=== PATIENT | female | born 1950 | race Caucasian/White ===

== ENCOUNTER → 2019-06-30 14:00 | Outpatient (CLI) | payer MEDICARE, MEDICAID, SELFPAY ==
[2019-06-30 14:09] LABS: Microscopic, Urine URINE MICROSCOPIC (MICROSCOPIC)
[2019-06-30 15:16] LABS: Appearance,Urine CLEAR (Clear); Bilirubin,Urine Negative (Negative); Blood, Urine 2+ (Negative); Color,Urine YELLOW (Yellow); Glucose,Urine (UA) Negative (Negative); Ketones,Urine Negative (Negative); Leukocyte Esterase,Urine 3+ (Negative); Nitrate,Urine Negative (Negative); Protein,Urine Negative (Negative); Specific Gravity, Urine >= 1.030 (1.005-1.030); Urobilinogen,Urine 0.2 EU/dl (0.2)
[2019-06-30 17:07] LABS: WBC,Urine 20-50 #/hpf (0-3)
[2019-06-30 17:08] LABS: Bacteria,Urine 1+ /lpf
== END ==
PROVIDERS: Visit Provider Internal Medicine Adolescent Medicine
DX: N39.0 Urinary tract infection, site not specified (principal)
CPT/HCPCS: 81001; 87086; 87088; 87186

== ENCOUNTER 2020-05-16 01:01 | Observation (INO) | payer MEDICARE, MEDICAID, SELFPAY ==
[2020-05-16] VITALS (20 sets, daily range): BP systolic 121–203; BP diastolic 61–106; PULSE 69–95; RESP 15–24; TEMP 36.3–37.1; O2SAT 98–100; BMI 18.8; BMI 19.5
--- NOTE | 2020-05-16 01:22 | XR_ITS ---
PROCEDURE: XR CHEST PORTABLE CLINICAL HISTORY: shortness of breath COMPARISON: No exams were available for comparison FINDINGS: The cardiomediastinal silhouette and pulmonary vascularity are within normal limits. COPD/emphysematous changes. Patchy density right lower lobe laterally suggesting an area infiltrate. Minimal blunting of the right CP angle. Mild biapical pleural thickening Old left 9th rib fracture. IMPRESSION: Emphysema/COPD with increased markings in the right lower lobe which may be due to an area of faint infiltrate or atelectasis with small effusion. PA and lateral chest may provide further evaluation. Dictated by: Amarjit Lawrence MD 05/16/2020 04:37 Amarjit Lawrence MD in [place] 05/16/2020 04:37
[2020-05-16 01:56] LABS: Alanine Aminotransferase 24 U/L (12-78); Albumin Level 4.2 g/dl (3.5-5.0); Albumin/Globulin Ratio 1.4 (1.1-1.8); Alkaline Phosphatase 70 U/L (38-126); Anion Gap 5.7 mEq/L (5-15); Aspartate Amino Transferase 42 U/L (14-36); Bilirubin,Total 0.3 mg/dl (0.2-1.3); Blood Urea Nitrogen 30 mg/dl (7-17); Calcium 9.3 mg/dl (8.4-10.2); Carbon Dioxide 39 mmol/L (22.0-30.0); Chloride 101 mmol/L (98-107); Creatinine Clearance Estimated 31 mL/min (50-200); Estimated Glomerular Filt Rate 71 ml/min (>60); GFR (African American) 85 ML/MIN (>60); Globulin 2.9 g/dL (1.3-3.2); Glucose 122 mg/dl (74-100); Lactic Acid 0.7 mmol/L (0.7-2.1); Potassium 4.7 mmoL/L (3.5-5.1); Sodium 141 mmol/L (136-145); Total Protein,Serum 7.1 g/dl (6.3-8.2)
[2020-05-16 02:01] LABS: C-Reactive Protein 2.3 mg/L (0-4)
--- NOTE | 2020-05-16 02:04 | HMH.EDSOB ---
ED Disposition Clinical Impression: Acute exacerbation of chronic obstructive airways disease, Severe sepsis with acute organ dysfunction Respiratory failure with hypercapnia Qualifiers: Chronicity: acute on chronic Qualified Code(s): J96.22 - Acute and chronic respiratory failure with hypercapnia Disposition: Admitted As Inpatient Condition on Discharge: Good Referrals: Dariana Ospina [Primary Care Provider] - - Critical Care Critical Care Time: No Attestation: On 05/16/20, the high probability of a clinically significant, sudden or life threatening deterioration of the following system(s) required my full and direct attention, intervention and personal management. The time I documented below is in addition to time spent performing reported procedures but includes the following listed in this critical care notation. Medical Decision Making - Medical Records Medical records reviewed: Yes: I reviewed the patient's medical records. - [place] Inquiry Pt receiving controlled substance: No Vital Signs: 05/16/20 01:06 05/16/20 01:49 Temperature 98.7 F Temperature Source Oral Pulse Rate 84 Pulse Rate [Right Brachial] 95 H Respiratory Rate 24 Blood Pressure [Right Arm] 203/106 H Blood Pressure Mean [Right Arm] 138 Blood Pressure Source [Right Arm] Automatic Cuff Blood Pressure Position [Right Arm] Sitting 02 Sat by Pulse Oximetry 98 Oxygen Delivery Method Nasal Cannula Oxygen Flow Rate (LPM) 2 - Lab Data Lab results reviewed: Yes: I reviewed the patient's lab results. Lab Results 05/16/20 01:35: WBC 18.7 H, RBC 4.37, Hgb 12.8, Hct 41.3, MCV 94.6, MCH 29.2, MCHC 30.9 L, RDW 13.8, Plt Count 230, MPV 8.8, Neut % (Auto) 78.3, Lymph % (Auto) 15.5, Hill % (Auto) 4.3, Eos % (Auto) 1.5, Baso % (Auto) 0.4, Neut # (Auto) 14.6 H, Lymph # (Auto) 2.9, Hill # (Auto) 0.8, Eos # (Auto) 0.3, Baso # (Auto) 0.1, Total Counted 100, Neutrophils % (Manual) 78 H, Lymphocytes % (Manual) 14, Monocytes % (Manual) 5, Eosinophils % (Manual) 3, Platelet Estimate Normal, RBC Morphology Normal 05/16/20 01:35: Sodium 141, Potassium 4.7, Chloride 101, Carbon Dioxide 39 H, Anion Gap 5.7, BUN 30 H, Creatinine 0.80, Estimated Creat Clear 31, Estimated GFR 71, Est GFR ( Amer) 85, Glucose 122 H, Calcium 9.3, Total Bilirubin 0.3, AST 42 H, ALT 24, Alkaline Phosphatase 70, Troponin I < 0.01, C-Reactive Protein 2.3, Total Protein 7.1, Albumin 4.2, Globulin 2.9, Albumin/Globulin Ratio 1.4 05/16/20 01:35: Lactate 0.7 05/16/20 01:35: ESR 15 05/16/20 01:35: Procalcitonin 0.040 Result diagrams: 05/16/20 01:35 05/16/20 01:35 Orders (Tests/Meds): ED MEDICATIONS Generic Name Dose Route Start Last Admin Trade Name Freq PRN Reason Stop Dose Admin Albuterol/Ipratropium 3 ml 05/16/20 01:45 05/16/20 01:49 Ipratropium/Albuterol 3 Ml Neb IH 06/15/20 01:44 3 ml Q1H KHADIJAH Administration Azithromycin 500 mg/ Sodium 250 mls @ 250 mls/hr 05/16/20 03:30 Chloride IV 05/30/20 03:29 Q24H KHADIJAH Protocol Ceftriaxone Sodium 1 gm/ 50 mls @ 100 mls/hr 05/16/20 03:30 Sodium Chloride IV 05/30/20 03:29 Q24H KHADIJAH Protocol ORDERS Category Date Time Status CXR --portable [XR chest portable] Stat Exams 05/16/20 01:22 Taken Covid-19 Nasal PCR ([facility]) Routine Lab 05/16/20 01:35 Received Troponin I Q3H Lab 05/16/20 04:30 Ordered Troponin I Q3H Lab 05/16/20 07:30 Ordered Blood Culture Stat Micro 05/16/20 01:35 Received ABG [Arterial Blood Gas] Stat RT 05/16/20 01:21 Ordered EKG Request [ECG Request by /Amol] Stat Y 05/16/20 01:25 Ordered - Radiology Data #1 Image(s): Chest Image Reviewed: Yes I reviewed the patient's radiology image Preliminary Findings: Abnormal (copd) - ECG Data Tracing #1 Normal Sinus Rhythm: Yes Ischemic changes: non-specific ST-T wave changes - Physician Consults Physician Consulted: bredna Reason -: Admission - KRYSTIAN Score for Non-Stemi [age] of Patient: [age]
[2020-05-16 02:11] LABS: Basophils # 0.1 K/mm3 (0-0.2); Basophils % 0.4 % (0.1-2.0); Eosinophils # 0.3 K/mm3 (0.0-0.4); Eosinophils % 1.5 % (0.1-12.0); Hematocrit 41.3 % (37.0-47.0); Hemoglobin 12.8 g/dL (12.2-16.2); Lymphocytes # 2.9 K/mm3 (0.7-4.5); Lymphocytes % 15.5 % (10-50); Mean Corpuscular HGB Conc 30.9 g/dL (31.8-35.4); Mean Corpuscular Hemoglobin 29.2 pg (27.0-31.2); Mean Corpuscular Volume 94.6 fl (81-99); Mean Platelet Volume 8.8 fl (7.4-10.4); Monocytes # 0.8 K/mm3 (0.1-1.0); Monocytes % 4.3 % (1.7-9.3); Neutrophils # 14.6 K/mm3 (1.8-7.8); Neutrophils % 78.3 % (37.0-80.0); Platelet Count 230 K/mm3 (142-424); Red Blood Count 4.37 M/mm3 (4.20-5.40); Red Cell Distribution Width 13.8 % (11.5-17.5); White Blood Count 18.7 K/mm3 (4.8-10.8)
[2020-05-16 02:12] LABS: Troponin I < 0.01 ng/ml (0.00-0.034)
[2020-05-16 02:16] LABS: MANUAL DIFFERENTIAL MANUAL DIFFERENTIAL (MANUAL DIFF)
--- NOTE | 2020-05-16 02:22 | PC.NURSE ---
notified resp MD wanted to try vapotherm on pt.
[2020-05-16 02:39] LABS: Erythrocyte Sedimentation Rate 15 mm/hr (0-30)
--- NOTE | 2020-05-16 02:46 | PC.NURSE ---
pt finally AGREEED TO BIPAP. PLACED ON BIPAP AT THIS TIME
[2020-05-16 02:50] LABS: Eosinophils % 3 % (0-3); Lymphocytes % 14 % (10-50); Monocytes % 5 % (2-9); Neutrophils % 78 % (42-76); Platelet Estimate Normal; RBC Morphology Normal; Total Cells Counted 100
--- NOTE | 2020-05-16 03:31 | ECG_ITS ---
APPROVED REPORT Exam: Resting ECG HR:88 bpm ECG Measurements Heart Rate 88 AXES MN 128 P 75 QRSd 74 QRS 58 QT 370 T 61 QTc 447 Conclusion Normal sinus rhythm Normal ECG Electronically signed by : Nabil Paez, 05/16/2020 15:10:11
--- NOTE | 2020-05-16 03:57 | PC.NURSE ---
dr brenda cruz
[2020-05-16 04:12] LABS: NT Pro Brain Natriuretic Pep. 2050 pg/mL (0-125)
--- NOTE | 2020-05-16 04:22 | PC.NURSE ---
pt arrived to floor via stretcher at [id number]
[2020-05-16 05:32] LABS: Basophils % 0.1 % (0.1-2.0); Eosinophils # 0.1 K/mm3 (0.0-0.4); Eosinophils % 0.4 % (0.1-12.0); Hematocrit 43.9 % (37.0-47.0); Hemoglobin 13.5 g/dL (12.2-16.2); Lymphocytes # 0.7 K/mm3 (0.7-4.5); Lymphocytes % 3.7 % (10-50); Mean Corpuscular HGB Conc 30.8 g/dL (31.8-35.4); Mean Corpuscular Hemoglobin 29.2 pg (27.0-31.2); Mean Corpuscular Volume 94.8 fl (81-99); Mean Platelet Volume 8.8 fl (7.4-10.4); Monocytes # 0.3 K/mm3 (0.1-1.0); Monocytes % 1.5 % (1.7-9.3); Neutrophils # 18.4 K/mm3 (1.8-7.8); Neutrophils % 94.3 % (37.0-80.0); Platelet Count 170 K/mm3 (142-424); Red Blood Count 4.64 M/mm3 (4.20-5.40); Red Cell Distribution Width 13.9 % (11.5-17.5); White Blood Count 19.5 K/mm3 (4.8-10.8)
[2020-05-16 05:45] LABS: Chloride 103 mmol/L (98-107); Potassium 5.7 mmoL/L (3.5-5.1); Sodium 141 mmol/L (136-145)
[2020-05-16 05:48] LABS: Anion Gap 8.7 mEq/L (5-15); Blood Urea Nitrogen 29 mg/dl (7-17); Calcium 9.2 mg/dl (8.4-10.2); Carbon Dioxide 35 mmol/L (22.0-30.0); Creatinine Clearance Estimated 31 mL/min (50-200); Estimated Glomerular Filt Rate 71 ml/min (>60); GFR (African American) 85 ML/MIN (>60); Glucose 129 mg/dl (74-100); Magnesium 1.9 mg/dl (1.6-2.3)
[2020-05-16 06:01] LABS: Troponin I 0.01 ng/ml (0.00-0.034)
[2020-05-16 07:02] LABS: ABG PCO2 80.4 mmhg (35.0-45.0); ABG PH 7.25 mmol/L (7.35-7.45)
[2020-05-16 07:03] LABS: ABG Base Excess 7.3 mmol/L (-2.4-2.3); ABG HCO3 34.5 mmhg (22.0-26.0); ABG Oxygen Saturation 94 % (90-100); ABG PO2 72.3 mmhg (80-100)
[2020-05-16 07:04] LABS: Allen's Test ACCEPTABLE; Oxygen 2LPM %; Source R RADIAL
--- NOTE | 2020-05-16 07:29 | HMH.PHAVTE ---
[facility] Pharmacy VTE Monitoring - Patient Demographics Admission date: 05/16/20 Report Date: 05/16/20 Time: 07:30 Allergies/Adverse Reactions: Patient Allergies levofloxacin [From Levaquin] Allergy (Mild, Verified 05/16/20 06:19) rash and itching Height: 1.42 m Weight: 39.548 kg Patient Problems: Current Active Problems Acute exacerbation of chronic obstructive airways disease (Acute) Severe sepsis with acute organ dysfunction (Acute) Respiratory failure with hypercapnia (Acute) - VTE Risk Labs: VTE Related Lab Results Hgb 13.5 g/dL (12.2-16.2) 05/16/20 05:15 Hct 43.9 % (37.0-47.0) 05/16/20 05:15 Plt Count 170 K/mm3 (142-424) D 05/16/20 05:15 BUN 29 mg/dl (7-17) H 05/16/20 05:15 Creatinine 0.80 mg/dl (0.52-1.04) 05/16/20 05:15 Estimated Creat Clear 31 mL/min (50-200) 05/16/20 05:15 VTE Score: 8 VTE Risk Level: Moderate Risk - Prophylaxis VTE Prophylaxis Ordered?: Yes Types of VTE Prophylaxis: TEDS Knee High Location of Applied Device: Bilateral Lower Extremeties
--- NOTE | 2020-05-16 07:34 | HMH.HP ---
*Admission Date: 05/16/20 *Chief complaint: Shortness of breath *History of present illness: 70-year-old female with history of COPD became increasingly short of breath at home yesterday. She presented to our emergency department. In the ER she was found to have acute respiratory failure with mild hypoxia and more significant hypercapnia that required application of BiPAP. Patient normally wears oxygen at home 2 to 2-1/2 L/min. Patient was admitted on BiPAP for her acute respiratory failure. She denies fevers, shortness of breath, cough, chest pain. She does admit that her memory of the events of yesterday is a little fuzzy. She had recently been released from [facility] after a rehabilitation stay there [facility] History I have reviewed the patient's past medical history: Yes Medical History: Reports:: Chronic Obstructive Pulmonary Disease (COPD), Hyperlipidemia, Hypertension, Peripheral Vascular Disease Denies:: Cancer, Diabetes Mellitus Type 1, Diabetes Mellitus Type 2, Internal Pacemaker, MRSA *Have you ever received a pneumonia vaccine?: No *Have you received a flu vaccine this season?: No Other Medical History: Reports: Hypothyroidism Other Surgeries: No: Pacemaker Amputation: No - *Social History Smoking Status: Former smoker Alcohol Intake: never *Occupational Status:: unemployed Household Members: family *Travel in the last 8 weeks: None Family Hx:: Unable to obtain Review of Systems - Constitutional Denies body ache(s), Denies chills - Eyes Denies blurry vision - ENT Denies difficulty swallowing - *Cardiovascular Denies chest pain, Denies chest pain at rest, Denies chest pain with activity - *Respiratory Reports shortness of breath, Denies change in phlegm color, Denies chest congestion, Denies cough - *Gastrointestinal Denies abdominal pain, Denies loose stools - *Genitourinary Denies painful urination - *Musculoskeletal Denies joint pain - *Neurologic Denies localized weakness, Denies headache(s), Denies seizure-like activity Meds Home Medications Medication Instructions Recorded Confirmed Type Aspirin [Aspirin 81mg EC Tab] 81 mg PO DAILY 05/16/20 05/16/20 History Atorvastatin Calcium [Lipitor 40mg 40 mg PO HS 05/16/20 05/16/20 History Tablet*] Clopidogrel Bisulfate [Plavix 75mg 75 mg PO DAILY 05/16/20 05/16/20 History Tab] Fluticasone Propionate [Flonase 18.2 ml NS DAILY 05/16/20 05/16/20 History Allergy Relief] Isosorbide Dinitrate 30 mg PO DAILY 05/16/20 05/16/20 History LORazepam [Lorazepam 0.5mg Tablet] 0.5 mg PO BID 05/16/20 05/16/20 History Levothyroxine Sodium 50 mcg PO DAILY 05/16/20 05/16/20 History [Levothyroxine 50mcg (0.05mg) Tab] Loratadine [Claritin] 10 mg PO DAILY 05/16/20 05/16/20 History Metoprolol Tartrate [Lopressor 50 mg PO BID 05/16/20 05/16/20 History 50mg tablet] lisinopriL [Lisinopril] 10 mg PO DAILY 05/16/20 05/16/20 History predniSONE [Prednisone 2.5mg 0.5 tab .ROUTE DAILY 05/16/20 05/16/20 History Tab] Allergies Allergy/AdvReac Type Severity Reaction Status Date / Time levofloxacin [From [facility]] Allergy Mild rash and Verified 05/16/20 06:19 itching Exam Vital signs and Labs for Last 24 Hours: Temp Pulse Resp BP Pulse Ox 98.3 F 88 22 165/91 H 98 05/16/20 04:20 05/16/20 06:22 05/16/20 04:20 05/16/20 04:20 05/16/20 04:48 Laboratory Results - last 24 hr 05/16/20 01:22: Specimen Source R radial, O2 % 2lpm, ABG pH 7.25 L, ABG pCO2 80.4 H, ABG pO2 72.3 L, ABG HCO3 34.5 H, ABG Total CO2 37.0 H, ABG O2 Saturation 94, ABG Base Excess 7.3 H, Amarjit Test Acceptable 05/16/20 01:35: WBC 18.7 H, RBC 4.37, Hgb 12.8, Hct 41.3, MCV 94.6, MCH 29.2, MCHC 30.9 L, RDW 13.8, Plt Count 230, MPV 8.8, Neut % (Auto) 78.3, Lymph % (Auto) 15.5, Foster % (Auto) 4.3, Eos % (Auto) 1.5, Baso % (Auto) 0.4, Neut # (Auto) 14.6 H, Lymph # (Auto) 2.9, Foster # (Auto) 0.8, Eos # (Auto) 0.3, Baso # (Auto) 0.
--- NOTE | 2020-05-16 07:37 | SW/DCPLANNER ---
Addendum entered by Mirta Contreras 05/19/20 06:33: RECEIVED A CALL FROM [facility] LAST EVENING THAT [facility] APPROVED THIS PATIENT TO GO THERE TODAY (FRIDAY).... I HAVE NOTIFIED DR KOHLI AND HE STATED HE WILL DISCHARGE HER.. DAUGHTER IS COMING TO TAKE HER THERE... Original Note: PATIENT ADMITTED TO [facility] LAST EVENING AFTER JUST BEING DISCHARGED FROM [facility] TO GO HOME...HER [employer]/[facility] DENIED HER TO STAY ANY LONGER AND PATIENT WAS GOING TO HAVE TO CONVERT TO MEDICAID OR GO HOME AND PATIENT ELECTED TO GO HOME.. I SPOKE WITH SHERI AND SHE SAID THEY MAY TAKE HER BACK IF SHE CHOOSES TO COME.. WILL FOLLOW UP WITH PATIENT AND DAUGHTER TODAY AND SEND UPDATED INFORMATION IF SHE ELECTS TO GO BACK...
[2020-05-16 08:45] LABS: Troponin I 0.02 ng/ml (0.00-0.034)
--- NOTE | 2020-05-16 11:04 | HMH.PHAINT ---
MEDICATION RECONCILIATION COMPLETED USING HOME PHARMACY AND PATIENT INTERVIEW
--- NOTE | 2020-05-16 12:30 | PC.NURSE ---
Addendum entered by Lori Velarde RN 05/16/20 14:42: Pt on RA Original Note: Pt has been weaned down to 1 L NC and has sustained 100% for approx 5 min at this time, will continue to monitor and see how pt tolerates RA.
--- NOTE | 2020-05-16 13:55 | PC.NURSE ---
Speci cup placed on bedside table. Pt educated on need for sputum sample. Pt verbalized understanding. Will continue to monitor.
--- NOTE | 2020-05-16 14:29 | PC.NURSE ---
Sputum induced. Pt unable to make productive cough. Encouraged to cough. Specimen cup left at bedside.
--- NOTE | 2020-05-16 14:46 | SW/DCPLANNER ---
Addendum entered by Mirta Contreras 05/17/20 09:19: SENT INFORMATION TO [facility] TO SEND IN FOR AUTHORIZATION FOR PATIENT TO RETURN BACK THERE FOR SKILLED STAY.. WAITING TO HEAR BACK TO WHETHER IT WAS APPROVED OR NOT.... Original Note: MS LAMAS PRESENTED INTO THE ED VIA EMS AFTER BEING DISCHARGED TO HOME FROM [facility] YESTERDAY (FRIDAY).... HER INSURANCE HAD DENIED HER TO STAY ANY LONGER. SHE PRESENTED HOME AND CALLED HER DAUGHTER LAST EVENING AND SAID SHE COULDN'T BREATH AND DAUGHTER CALLED AN AMBULANCE...I SPOKE WITH HER ABOUT GOING BACK TO [facility] AND SHE SAID I COULD SEND HER INFORMATION AND SEE IF THEY WILL APPROVE HER STAY...I SPOKE WITH HER DAUGHTER AND SHE DIDN'T WANT HER LEAVE THE [facility] BUT MS LAMAS WAS ADAMANT SHE WANTED TO GO HOME .. IF SHE GOES BACK AND HER INSURANCE DOESN'T APPROVE HER SHE WILL HAVE TO GO MEDICAID PENDING, PATIENT STATED SHE DID NOT WANT TO GO TO STAY FOREVER... WILL NEED A PT/OT EVAL IN ORDER TO SEND IT IN AND I DID SPEAK WITH SHERI AND SHE SAID THEY WOULD TAKE HER BACK.. NOT SURE WHEN SHE WILL BE READY FOR A DISPOSITION BUT IT SHOULDN'T BE LONG...
--- NOTE | 2020-05-16 15:58 | PC.NURSE ---
Pt has slept most of this shift. She has been between 3 L NC and RA this shift. Pt tolerated RA for approximately 45 min and then desatted to 83-86%. 1L NC reapplied to pt and pt is currently at 94%. Pt has turned herself in bed this shift w/ no issues. Besides o2 sats, VSS. Pt has been incontinent of urine this shift. No other acute changes or complaints at this time.
[2020-05-17] VITALS (10 sets, daily range): BP systolic 129–160; BP diastolic 77–89; PULSE 78–90; RESP 16–20; TEMP 36.6–36.9; O2SAT 94–100; BMI 20.5
--- NOTE | 2020-05-17 07:08 | PC.NURSE ---
20 L AC infiltrated this AM, stated it was ok to leave without IV access
--- NOTE | 2020-05-17 07:29 | HMH.ACPN2 ---
Internal Medicine - PN: Subj *Date: 05/17/20 *Time: 07:29 Interval history: Patient IV infiltrated overnight which is led to swelling of the lateral left upper arm. Patient is worried she may have a blood clot. Both nursing staff and myself this morning have explained to her that she does not have a blood clot this is simply the IV fluid she was being given getting into her tissues. Otherwise she reports improvement in her shortness of breath. Patient does believe allergies may have triggered her acute respiratory failure. Exam Vital signs and Labs for Last 24 Hours: Temp Pulse Resp BP Pulse Ox 98.1 F 90 16 129/77 95 05/17/20 04:00 05/17/20 06:30 05/17/20 04:00 05/17/20 04:00 05/17/20 06:30 Laboratory Results - last 24 hr 05/16/20 08:15: Troponin I 0.02 I & O for Last 24 hours: Intake & Output 05/14/20 05/15/20 05/16/20 05/17/20 11:59 11:59 11:59 11:59 Intake Total 60 / 60 480 / 480 Output Total 0 / 0 0 / 0 Balance 60 / 60 480 / 480 Weight 87 lb 3 oz 91 lb 7 oz Microbiology Reports for the Last 24 Hours: Microbiology 05/16/20 01:35 Nasopharyngeal Coronavirus COVID-19 PCR - Final Narrative: Patient looks comfortable sitting in bed. Nasal cannula is in place. Lung exam reveals distant breath sounds with right basilar rales. She does have some faint expiratory wheezes. Heart has a regular rate and rhythm this morning. Abdomen is soft. Lower extremities have no edema Assessment and Plan (1) Acute exacerbation of chronic obstructive airways disease Status: Acute Category: Medical Code(s): J44.1 - Chronic obstructive pulmonary disease with (acute) exacerbation (2) Respiratory failure with hypercapnia Status: Acute Qualifiers: Chronicity: acute on chronic Qualified Code(s): J96.22 - Acute and chronic respiratory failure with hypercapnia Category: Medical Code(s): J96.92 - Respiratory failure, unspecified with hypercapnia (3) Essential hypertension Status: Acute Category: Medical Code(s): I10 - Essential (primary) hypertension (4) Former smoker Status: Acute Category: Social Hx Code(s): Z87.891 - Personal history of nicotine dependence (5) Hyperlipidemia Status: Acute Category: Medical Code(s): E78.5 - Hyperlipidemia, unspecified (6) Peripheral arterial disease Status: Acute Category: Medical Code(s): I73.9 - Peripheral vascular disease, unspecified (7) Hypothyroidism Status: Acute Category: Medical Code(s): E03.9 - Hypothyroidism, unspecified (8) Allergic rhinitis Status: Acute Category: Medical Code(s): J30.9 - Allergic rhinitis, unspecified - Assessment and plan all Dx Assessment and Plan for all problems:: 1. Patient will be transition to oral medications due to infiltration of IV and difficulty reestablishing IV access. Oral medicines will now be prednisone 20 mg daily, Omnicef 300 mg twice daily, azithromycin 250 mg daily. 2. Patient is willing to return to [facility]. Medically patient is stable and appropriate for discharge. We are awaiting PT OT evaluation today and insurance precertification.
--- NOTE | 2020-05-17 08:00 | PC.NURSE ---
pt has done well overnight with the exception of the IV infiltration, no complaints of any SOA or chest pain this shift, was on 1L NC until around 0630, turned down to 0.5 L, O2 sats on 1 L 97-100%
--- NOTE | 2020-05-17 09:00 | HMH.PTEV ---
Physical Therapy Evaluation Rehab PT IP Evaluation Start: 05/16/20 15:03 Freq: .once Status: Active Protocol: Document 05/17/20 08:30 PHORNE (Rec: 05/17/20 09:00 PHORNE [id number]) Subjective/History History History 70 yowf adm to [facility] with COPD exac. She reports she lives with daughter currently, no steps to enter the home and uses a walker for ambulation when I need to. She uses oxygen via NC at all times. Subjective Subjective Pt reports she feel like she can not take care of herself well enough to go home. Rehab PT IP Eval Objective Appearance Patient Behavior Appropriate Patient Orientation Person,Place,Time Difficulty following instructions none Speech Pattern Clear Ambulation Patient Able to Ambulate Yes Ambulation Observation IP General Gait Pattern Observation Shuffling Step Ambulation Distance (feet) 15 Ambulation Assistive Device Rolling Walker Ambulation Ability Contact Guard/Hand Hold Balance Ability to Arise Able, uses arms to help Sitting Balance Steady, safe Standing Balance Steady, wide stance Dynamic Sitting Balance Ability Good Dynamic Standing Balance Ability Fair Transfers Bed Transfer Ability Contact Guard/Hand Hold Chair Transfer Ability Contact Guard/Hand Hold Sit to Stand Bed Transfer Ability Contact Guard/Hand Hold Sit to Stand Chair Transfer Ability Contact Guard/Hand Hold ROM All Extremities PT ROM Status WFL MMT All Extremities PT MMT WFL Rehab PT IP prob,goals,plan Problems Date of Evaluation: 05/17/20 PT IP Problems Bed Mobility,Transfers,Gait, Self care Rehab Potential Rehab Potential Good Plan PT Intervention Plan Bed Mobility,Transfers,Gait, Self care,Therapeutic Exercise PT Plan Frequency BID Duration LOS Discharge Goals Bed Transfer Ability Supervision/Stand by Sit to Stand Chair Transfer Ability Supervision/Stand by Ambulation Assistive Device Rolling Walker Ambulation Distance (feet) 40 Discharge Plan PT Discharge Plan Pt is most appropriate for rehab placement at this time due to increased need for safety and assistance with ADL 's. G -code Required No Eval Complexity
--- NOTE | 2020-05-17 09:36 | HMH.OTEV ---
OT Inpatient Evaluation Rehab OT IP Evaluation Start: 05/17/20 07:28 Freq: ONCE Status: Complete Protocol: Document 05/17/20 09:31 EFRAIN (Rec: 05/17/20 09:36 PRACHIALLA [id number]) Rehab OT IP Assessment Subjective History 70-year-old female with history of COPD became increasingly short of breath at home yesterday. She presented to our emergency department. In the ER she was found to have acute respiratory failure with mild hypoxia and more significant hypercapnia that required application of BiPAP. Patient normally wears oxygen at home 2 to 2-1/2 L/min. Patient was admitted on BiPAP for her acute respiratory failure. She denies fevers, shortness of breath, cough, chest pain. She does admit that her memory of the events of yesterday is a little fuzzy. She had recently been released from [facility] after a rehabilitation stay there. PMH: Chronic Obstructive Pulmonary Disease (COPD), Hyperlipidemia, Hypertension, Peripheral Vascular Disease Subjective I can try to walk around. Patient verbalize to OT and PT that she does not feel comfortable to return home at this time 2* dtr is not home all the time and worried about SP02 when home alone. Patient verbalize wanting to be d/c to rehab to regain strengthen and independence prior to returning home. Patient lives in a 1 story home with dtr who is there after work hours. Dtr assist with ADLs such as bathing and drsg as well as tub transfers. Instructed Patient on safety awareness to complete
--- NOTE | 2020-05-17 18:33 | PC.NURSE ---
Pt has been pleasant this shift. o2 sats have been been >90% this shift. Pt has been between 0.5-1 L this shift. When pt is taken off o2, pt does well for 10-15 minutes, then will desat in the low to mid 80's and sustain. Pt did well w/ PT this shift, pt was UTC for approx 2 hours. Pt required x1 assist w/ a standard walker. Pt remains incontinent of urine. No other acute changes or complaints at this time.
[2020-05-18] VITALS (9 sets, daily range): BP systolic 150–172; BP diastolic 80–100; PULSE 67–100; RESP 18–22; TEMP 36.5–36.9; O2SAT 96–98; BMI 20.5
--- NOTE | 2020-05-18 04:03 | PC.NURSE ---
pt refused to wear bipap at bedtime. Stated she would wear it during the day.
--- NOTE | 2020-05-18 06:45 | PC.NURSE ---
shift summary patient has not voiced any complaints this shift. has remained on 1 l nc with o2 sats high 90s while sleeping. breath sounds diminished throughout, non productive cough present at the beginning of the shift. cupola liner has shown sr. incontinent of bladder.
--- NOTE | 2020-05-18 07:36 | P.PN_ITS ---
Internal Medicine - PN: Subj *Date: 05/18/20 *Time: 07:36 Interval history: Patient reports wheezing this morning but overall feels like she has improved since admission. PT eval yesterday was performed and SNF for rehab was recommended due to patient's physical debility's. Exam Vital signs and Labs for Last 24 Hours: Temp Pulse Resp BP Pulse Ox 98.0 F 83 18 150/90 H 98 05/18/20 04:00 05/18/20 06:43 05/18/20 04:00 05/18/20 04:00 05/18/20 06:43 I & O for Last 24 hours: Intake & Output 05/15/20 05/16/20 05/17/20 05/18/20 11:59 11:59 11:59 11:59 Intake Total 60 / 60 480 / 480 480 / 480 Output Total 0 / 0 0 / 0 Balance 60 / 60 480 / 480 480 / 480 Weight 87 lb 3 oz 91 lb 7 oz 91 lb 3 oz Microbiology Reports for the Last 24 Hours: Microbiology 05/16/20 01:35 Blood Blood Culture - Preliminary NO GROWTH AFTER 48 HOURS 05/16/20 01:35 Blood Blood Culture - Preliminary NO GROWTH AFTER 48 HOURS Narrative: Patient is in no distress. She is sitting up on the side of the bed eating breakfast. Lungs have some faint expiratory wheezes this morning. Rales that have been in the right base have cleared. Heart has a regular rate and rhythm Assessment and Plan (1) Acute exacerbation of chronic obstructive airways disease Status: Acute Category: Medical Code(s): J44.1 - Chronic obstructive pulmon sulema disease with (acute) exacerbation (2) Respiratory failure with hypercapnia Status: Acute Qualifiers: Chronicity: acute on chronic Qualified Code(s): J96.22 - Acute and chronic respiratory failure with hypercapnia Category: Medical Code(s): J96.92 - Respiratory failure, unspecified with hypercapnia (3) Essential hypertension Status: Acute Category: Medical Code(s): I10 - Essential (primary) hypertension (4) Former smoker Status: Acute Category: Social Hx Code(s): Z87.891 - Personal history of nicotine dependence (5) Hyperlipidemia Status: Acute Category: Medical Code(s): E78.5 - Hyperlipidemia, unspecified (6) Peripheral arterial disease Status: Acute Category: Medical Code(s): I73.9 - Peripheral vascular disease, unspecified (7) Hypothyroidism Status: Acute Category: Medical Code(s): E03.9 - Hypothyroidism, unspecified (8) Allergic rhinitis Status: Acute Category: Medical Code(s): J30.9 - Allergic rhinitis, unspecified - Assessment and plan all Dx Assessment and Plan for all problems:: 1. Continue antibiotics, steroids, aerosols. We are awaiting word from patient's insurance regarding transfer to residential facility.
--- NOTE | 2020-05-18 07:38 | HMH.DCSUM ---
General - General Admission date:: 05/16/20 Discharge date: 05/19/20 HPI HPI: 70-year-old female with history of COPD became increasingly short of breath at home yesterday. She presented to our emergency department. In the ER she was found to have acute respiratory failure with mild hypoxia and more significant hypercapnia that required application of BiPAP. Patient normally wears oxygen at home 2 to 2-1/2 L/min. Patient was admitted on BiPAP for her acute respiratory failure. She denies fevers, shortness of breath, cough, chest pain. She does admit that her memory of the events of yesterday is a little fuzzy. She had recently been released from [facility] after a rehabilitation stay there Hospital Course Hospital Course: Patient was admitted and placed on Solu-Medrol and aerosols for her COPD exacerbation, acute on chronic respiratory failure. She was also placed on BiPAP and admitted to the stepdown unit. By the following morning patient's acute respiratory failure had been corrected and she was transitioned to nasal cannula which kept the patient's O2 sats in the mid 90s the remainder of hospitalization. She was continued on steroids, for Solu-Medrol and transition to prednisone when IV access was lost. She was continued on duo nebs every 4-6 hours. Patient was continued on Rocephin and azithromycin due to perceived right lower lobe infiltrate on x-ray consistently found on exam as well. Patient remained afebrile during hospitalization. Patient was quite weak from her illness and it was felt the patient would benefit from return to the [facility] facility she had just left. Patient had PT and OT eval's. Objective Vital signs: Temp Pulse Resp BP Pulse Ox 98.0 F 83 18 150/90 H 98 05/18/20 04:00 05/18/20 06:43 05/18/20 04:00 05/18/20 04:00 05/18/20 06:43 no acute distress - *Routine HEENT Exam Head: Present: normocephalic Eye: Present: EOMI, PERRL ENT: Present: mucous membranes moist - *Routine Respiratory Exam Present: wheezes - *Routine Cardiovascular Exam Present: RRR - *Routine Abdominal Exam Present: soft, normoactive bowel sounds. Absent: tenderness - *Routine Extremities Exam Absent: cyanosis, clubbing, edema Results Labs on day of discharge: Preliminary micro results at discharge 05/16/20 01:35 Blood Culture - Preliminary Blood NO GROWTH AFTER 48 HOURS 05/16/20 01:35 Blood Culture - Preliminary Blood NO GROWTH AFTER 48 HOURS DS: Diagnosis - Discharge Diagnosis (1) Acute exacerbation of chronic obstructive airways disease Status: Acute (2) Respiratory failure with hypercapnia Status: Acute (3) Essential hypertension Status: Acute (4) Former smoker Status: Acute (5) Hyperlipidemia Status: Acute (6) Peripheral arterial disease Status: Acute (7) Hypothyroidism Status: Acute (8) Allergic rhinitis Status: Acute Discharge Plan - Patient Discharge Instructions ACTIVITY: Continue current activity DIET: continue same diet Patient Instructions: Peripheral Artery Disease, DI for Chronic Obstructive Pulmonary Disease, DI for Respiratory Failure, DI for Hypoxia - Follow up Plan Disposition: [facility] Home Medications: Home Medications Medication Instructions Recorded Confirmed Type Albuterol Sulfate [Albuterol 1 neb IH TID 05/16/20 05/16/20 History 0.083% 2.5mg/3mL neb] Aspirin [Aspirin 81mg EC Tab] 81 mg PO DAILY 05/16/20 05/16/20 History Atorvastatin Calcium [Lipitor 40mg 40 mg PO HS 05/16/20 05/16/20 History Tablet*] Azithromycin [Zithromax 250mg tab] 250 mg PO MOWEFR 05/16/20 05/16/20 History Clopidogrel Bisulfate [Plavix 75mg 75 mg PO DAILY 05/16/20 05/16/20 History Tab] Fluticasone Propionate [Flonase 2 sprays NOSTRIL-B DAILY 05/16/20 05/16/20 History Allergy Relief] Isosorbide Dinitrate 30 mg PO DAILY 05/16/20 05/16/20 History Lev
--- NOTE | 2020-05-18 17:35 | PC.NURSE ---
Pt has been pleasant and cooperative this shift. A&O X4. No complaints of pain or SOA. Pt is receiving O2 via NC @ 1 LPM with sats. >90%. Lung sounds reveal expiratory wheezing. Skin is C/D/I. No edema noted. Telemetry reveals NSR. Pt ambulates with assistance X1. Pt sat up on the side of the bed for a few hours today. Pt is incontinent and a brief is in place. No BM this shift. Pt has been instructed to provide a sputum specimen and a cup has been placed at bedside. B/P this AM noted to be elevated. After administration of AM medications, B/P improved and has since remained stable. Call light within reach. Will continue to monitor.
--- NOTE | 2020-05-19 02:52 | PC.NURSE ---
PT REFUSED TO WEAR BIPAP
[2020-05-19 04:00] VITALS: BP 154/84; PULSE 72; RESP 22; TEMP 36.9; O2SAT 99
[2020-05-19 05:33] VITALS: BMI 20.9
--- NOTE | 2020-05-19 05:47 | PC.NURSE ---
PT HAS SLEPT MOST OF THE NIGHT,LUNGS WITH SOME INSPIROTORY WHEEZING NOTED. ,SAT LEVEL 99% ON 2 LITERS OF OXYGEN.PT DENIES ANY SOA..BOWEL SOUNDS X 4 QUADS,PT HAS VOIDED SEVERAL TIMES IN HER ATTENDS.WILL CONTINUE TO MONITOR
[2020-05-19 08:00] VITALS: BP 144/80; PULSE 101; RESP 18; TEMP 36.4; O2SAT 90
[2020-05-19 08:05] VITALS: PULSE 87; PULSE 89
[2020-05-19 08:07] VITALS: O2SAT 95
[2020-05-19 09:57] VITALS: PULSE 78; PULSE 80
== END 2020-05-19 11:51 ==
LOC: ER 01:26 → 2ND 03:44
PROVIDERS: Admitting Provider Family Medicine; Emergency Provider Emergency Medicine; PCP Nurse Practitioner Family; Visit Provider Family Medicine
DX: J96.22 Acute and chronic respiratory failure with hypercapnia (principal); J44.1 Chronic obstructive pulmonary disease with (acute) exacerbation; I10 Essential (primary) hypertension; Z87.891 Personal history of nicotine dependence; E03.9 Hypothyroidism, unspecified; Z88.1 Allergy status to other antibiotic agents; Z79.01 Long term (current) use of anticoagulants; Z79.82 Long term (current) use of aspirin; Z79.51 Long term (current) use of inhaled steroids; Z79.899 Other long term (current) drug therapy; R06.9 Unspecified abnormalities of breathing
CPT/HCPCS: 36415; 71045; 80048; 80053; 82803; 83605; 83735; 83880; 84145; 84436; 84443; 84484; 85007; 85025; 85651; 86140; 87040; 93005; 93306; 94640; 94760; 94761; 96374; 97162; 97165; 97530; 99284; G0378; J0456; U0003

== ENCOUNTER → 2020-05-23 09:28 | Outpatient (CLI) | payer MEDICARE, MEDICAID, SELFPAY ==
[2020-05-23 14:04] LABS: Chloride 99 mmol/L (98-107)
[2020-05-23 14:05] LABS: Sodium 138 mmol/L (136-145)
[2020-05-23 14:07] LABS: Alanine Aminotransferase 22 U/L (12-78); Alkaline Phosphatase 59 U/L (38-126); Aspartate Amino Transferase 23 U/L (14-36); Bilirubin,Total 0.3 mg/dl (0.2-1.3); Blood Urea Nitrogen 30 mg/dl (7-17); Estimated Glomerular Filt Rate 71 ml/min (>60); GFR (African American) 85 ML/MIN (>60)
[2020-05-23 14:08] LABS: Albumin Level 3.1 g/dl (3.5-5.0); Albumin/Globulin Ratio 1.4 (1.1-1.8); Calcium 9.1 mg/dl (8.4-10.2); Carbon Dioxide 37 mmol/L (22.0-30.0); Chol/HDL Ratio 2.3 (1-3.5); Cholesterol 202 mg/dl (140-200); Globulin 2.2 g/dL (1.3-3.2); Glucose 84 mg/dl (74-100); HDL Cholesterol 86 mg/dl (40-60); Total Protein,Serum 5.3 g/dl (6.3-8.2); Triglycerides 77 mg/dl (30-150); VLDL Cholesterol 15 mg/dL (0-40)
[2020-05-23 14:16] LABS: Basophils % 0.2 % (0.1-2.0); Eosinophils # 0.3 K/mm3 (0.0-0.4); Eosinophils % 1.9 % (0.1-12.0); Hematocrit 35.9 % (37.0-47.0); Hemoglobin 11.4 g/dL (12.2-16.2); Lymphocytes # 2.9 K/mm3 (0.7-4.5); Lymphocytes % 21.3 % (10-50); Mean Corpuscular HGB Conc 31.6 g/dL (31.8-35.4); Mean Corpuscular Hemoglobin 29.2 pg (27.0-31.2); Mean Corpuscular Volume 92.3 fl (81-99); Mean Platelet Volume 9.1 fl (7.4-10.4); Monocytes % 7.4 % (1.7-9.3); Neutrophils # 9.4 K/mm3 (1.8-7.8); Neutrophils % 69.2 % (37.0-80.0); Platelet Count 243 K/mm3 (142-424); Red Blood Count 3.89 M/mm3 (4.20-5.40); Red Cell Distribution Width 14.1 % (11.5-17.5); White Blood Count 13.6 K/mm3 (4.8-10.8)
[2020-05-23 14:19] LABS: Direct LDL Cholesterol 97.26 mg/dL (100-129)
== END ==
PROVIDERS: Visit Provider Nurse Practitioner Family
DX: E03.9 Hypothyroidism, unspecified (principal); E78.5 Hyperlipidemia, unspecified; I10 Essential (primary) hypertension; I25.10 Atherosclerotic heart disease of native coronary artery without angina pectoris
CPT/HCPCS: 36415; 80053; 80061; 84443; 85025

== ENCOUNTER 2021-01-21 09:46 | Observation (INO) | payer MEDICARE, MEDICAID, SELFPAY ==
[2021-01-21] VITALS (22 sets, daily range): BP systolic 144–207; BP diastolic 60–105; PULSE 62–124; RESP 12–24; TEMP 37–37.3; O2SAT 95–100; BMI 18.3; BMI 19.3
--- NOTE | 2021-01-21 10:17 | ECG_ITS ---
APPROVED REPORT Exam: Resting ECG HR:116 bpm ECG Measurements Heart Rate 116 AXES CO 126 P 84 QRSd 66 QRS 48 QT 324 T 89 QTc 450 Conclusion Sinus tachycardia Nonspecific ST and T wave abnormality Abnormal ECG Electronically signed by : Nabil Paez MD 01/22/2021 20:20:01
[2021-01-21 10:19] LABS: Influenza A, PCR Not Detected (NotDetected); Influenza B, PCR Not Detected (NotDetected)
--- NOTE | 2021-01-21 10:35 | XR_ITS ---
PROCEDURE INFORMATION: Exam: XR Chest Exam date and time: 01/21/2021 10:35 AM Age: 70 years old Clinical indication: Shortness of breath; Additional info: Covid exposure TECHNIQUE: Imaging protocol: XR of the chest. Views: 1 view. COMPARISON: CR XR CHEST PORTABLE 05/16/2020 1:53 AM FINDINGS: Lungs: Emphysematous changes. No focal consolidation. Pleural spaces: Stable small right pleural effusion. Heart/Mediastinum: Unremarkable. No cardiomegaly. Vasculature: Stable vascular stent in the superior mediastinum. Bones/joints: Unremarkable. IMPRESSION: Stable small right pleural effusion.
--- NOTE | 2021-01-21 10:36 | PC.NURSE ---
Spoke with Bessy in RAD she will be down
[2021-01-21 10:49] LABS: Coronavirus 19, PCR Detected (NotDetected)
[2021-01-21 11:17] LABS: Basophils % 0.4 % (0.1-2.0); Eosinophils # 0.2 K/mm3 (0.0-0.4); Eosinophils % 2.1 % (0.1-12.0); Hemoglobin 12.4 g/dL (12.2-16.2); Lymphocytes # 0.9 K/mm3 (0.7-4.5); Lymphocytes % 11.7 % (10-50); Mean Corpuscular HGB Conc 31.1 g/dL (31.8-35.4); Mean Corpuscular Hemoglobin 29.1 pg (27.0-31.2); Mean Corpuscular Volume 93.7 fl (81-99); Monocytes # 0.4 K/mm3 (0.1-1.0); Monocytes % 5.9 % (1.7-9.3); Neutrophils # 5.8 K/mm3 (1.8-7.8); Neutrophils % 79.9 % (37.0-80.0); Platelet Count 214 K/mm3 (142-424); Red Blood Count 4.26 M/mm3 (4.20-5.40); Red Cell Distribution Width 12.9 % (11.5-17.5); White Blood Count 7.2 K/mm3 (4.8-10.8)
[2021-01-21 11:18] LABS: Chloride 100 mmol/L (98-107); Potassium 4.1 mmoL/L (3.5-5.1); Sodium 141 mmol/L (136-145)
[2021-01-21 11:21] LABS: Alanine Aminotransferase 21 U/L (12-78); Albumin Level 4.2 g/dl (3.5-5.0); Albumin/Globulin Ratio 1.6 (1.1-1.8); Alkaline Phosphatase 82 U/L (38-126); Anion Gap 6.1 mEq/L (5-15); Aspartate Amino Transferase 52 U/L (14-36); Blood Urea Nitrogen 23 mg/dl (7-17); Calcium 9.3 mg/dl (8.4-10.2); Carbon Dioxide 39 mmol/L (22.0-30.0); Creatinine Clearance Estimated 30 mL/min (50-200); Estimated Glomerular Filt Rate 71 ml/min (>60); GFR (African American) 85 ML/MIN (>60); Globulin 2.7 g/dL (1.3-3.2); Glucose 102 mg/dl (74-100); Total Protein,Serum 6.9 g/dl (6.3-8.2)
[2021-01-21 11:22] LABS: Bilirubin,Total 0.1 mg/dl (0.2-1.3); Magnesium 1.8 mg/dl (1.6-2.3)
[2021-01-21 11:33] LABS: Troponin I 0.07 ng/ml (0.00-0.034)
--- NOTE | 2021-01-21 11:42 | PC.NURSE ---
Cardiology has been paged.
--- NOTE | 2021-01-21 12:20 | PC.NURSE ---
on the phone with
[2021-01-21 14:34] LABS: Troponin I 0.11 ng/ml (0.00-0.034)
--- NOTE | 2021-01-21 15:06 | PC.NURSE ---
has been paged.
--- NOTE | 2021-01-21 15:19 | HMH.EDWEAK ---
ED Disposition Clinical Impression: Troponin level elevated, COVID-19 Disposition: Admitted As Inpatient Condition on Discharge: Good - Critical Care Critical Care Time: Yes Attestation: On 01/21/21, the high probability of a clinically significant, sudden or life threatening deterioration of the following system(s) required my full and direct attention, intervention and personal management. The time I documented below is in addition to time spent performing reported procedures but includes the following listed in this critical care notation. Total Critical Care Time: 30 Vital system(s) involved:: Respiratory Failure My critical care processes included: Assessment & monitoring of V/S, Initial and Re-exams, Data Review/Interpretation, Coordinating Care, Medication Orders and management, Documentation Medical Decision Making - Medical Records Medical records reviewed: Yes: I reviewed the patient's medical records. - [place] Inquiry Pt receiving controlled substance: No Vital Signs: 01/21/21 09:57 01/21/21 10:00 01/21/21 10:31 Temperature 99.2 F Temperature Source Oral Pulse Rate 62 120 H Pulse Rate [Right Radial] 121 H Respiratory Rate 18 12 15 Blood Pressure 174/81 H 177/92 H Blood Pressure [Right Arm] 172/85 H Blood Pressure Mean 112 120 Blood Pressure Mean [Right Arm] 114 Blood Pressure Source [Right Arm] Automatic Cuff Blood Pressure Position [Right Arm] Supine 02 Sat by Pulse Oximetry 100 100 100 Oxygen Delivery Method Nasal Cannula Oxygen Flow Rate (LPM) 3 01/21/21 11:00 01/21/21 11:30 01/21/21 12:00 Temperature Temperature Source Pulse Rate 113 H 114 H 108 H Pulse Rate [Right Radial] Respiratory Rate 20 22 20 Blood Pressure 170/77 H 170/85 H 169/88 H Blood Pressure [Right Arm] Blood Pressure Mean 108 115 Blood Pressure Mean [Right Arm] Blood Pressure Source [Right Arm] Blood Pressure Position [Right Arm] 02 Sat by Pulse Oximetry 100 100 100 Oxygen Delivery Method Nasal Cannula Oxygen Flow Rate (LPM) 3 01/21/21 12:31 01/21/21 13:00 01/21/21 13:30 Temperature Temperature Source Pulse Rate 124 H 106 H 110 H Pulse Rate [Right Radial] Respiratory Rate 18 20 19 Blood Pressure 147/76 H 144/79 H 165/89 H Blood Pressure [Right Arm] Blood Pressure Mean 99 100 113 Blood Pressure Mean [Right Arm] Blood Pressure Source [Right Arm] Blood Pressure Position [Right Arm] 02 Sat by Pulse Oximetry 99 99 100 Oxygen Delivery Method Oxygen Flow Rate (LPM) 01/21/21 14:00 01/21/21 14:31 01/21/21 15:00 Temperature Temperature Source Pulse Rate 76 74 112 H Pulse Rate [Right Radial] Respiratory Rate 19 20 19 Blood Pressure 160/60 H 198/104 H 173/87 H Blood Pressure [Right Arm] Blood Pressure Mean 93 136 115 Blood Pressure Mean [Right Arm] Blood Pressure Source [Right Arm] Blood Pressure Position [Right Arm] 02 Sat by Pulse Oximetry 95 96 98 Oxygen Delivery Method Oxygen Flow Rate (LPM) 01/21/21 15:31 01/21/21 16:00 01/21/21 16:31 Temperature Temperature Source Pulse Rate 107 H 108 H 110 H Pulse Rate [Right Radial] Respiratory Rate 19 18 19 Blood Pressure 152/78 H 181/89 H 207/105 H Blood Pressure [Right Arm] Blood Pressure Mean 108 103 130 Blood Pressure Mean [Right Arm] Blood Pressure Source [Right Arm] Blood Pressure Position [Right Arm] 02 Sat by Pulse Oximetry 98 98 100 Oxygen Delivery Method Oxygen Flow Rate (LPM) 01/21/21 17:00 01/21/21 17:30 01/21/21 18:00 Temperature Temperature Source Pulse Rate 114 H 112 H 102 H Pulse Rate [Right Radial] Respiratory Rate 24 22 22 Blood Pressure 184/92 H 201/85 H 204/79 H Blood Pressure [Right Arm] Blood Pressure Mean 122 127 133 Blood Pressure Mean [Right Arm] Blood Pressure Source [Right Arm] Blood Pressure Position [Right Arm] 02 Sat by Pulse Oximetry 100 100 96 Oxygen Delivery Method Nasal
[2021-01-21 17:56] LABS: Troponin I 0.14 ng/ml (0.00-0.034)
--- NOTE | 2021-01-21 19:30 | PC.NURSE ---
Called pharmacy to request meds, and were never sent. I called daughter klaus at [phone]. She is not home at the moment so she will give an update tomorrow.
--- NOTE | 2021-01-21 23:00 | PC.NURSE ---
Pt pulled out IV. 6 attempts were made to get new IV access by multiple staff. Pt is refusing any more sticks at this time. Pt states I want to take a break. Will continue to try to get IV access.
[2021-01-22] VITALS (9 sets, daily range): BP systolic 107–183; BP diastolic 63–93; PULSE 78–124; RESP 15–22; TEMP 36.6–37.5; O2SAT 95–100; BMI 19.3
[2021-01-22 06:25] LABS: Eosinophils # 0.1 K/mm3 (0.0-0.4); Mean Corpuscular HGB Conc 31.9 g/dL (31.8-35.4); Monocytes # 0.7 K/mm3 (0.1-1.0)
[2021-01-22 06:27] LABS: Basophils % 0.4 % (0.1-2.0); Eosinophils % 0.8 % (0.1-12.0); Hematocrit 43.8 % (37.0-47.0); Lymphocytes # 1.3 K/mm3 (0.7-4.5); Lymphocytes % 16.2 % (10-50); Mean Corpuscular Hemoglobin 30.1 pg (27.0-31.2); Mean Corpuscular Volume 94.3 fl (81-99); Mean Platelet Volume 8.5 fl (7.4-10.4); Monocytes % 9.3 % (1.7-9.3); Neutrophils # 5.7 K/mm3 (1.8-7.8); Neutrophils % 73.2 % (37.0-80.0); Platelet Count 177 K/mm3 (142-424); Red Blood Count 4.64 M/mm3 (4.20-5.40); Red Cell Distribution Width 12.8 % (11.5-17.5); White Blood Count 7.8 K/mm3 (4.8-10.8)
[2021-01-22 06:40] LABS: Chloride 102 mmol/L (98-107); Potassium 4.6 mmoL/L (3.5-5.1); Sodium 141 mmol/L (136-145)
[2021-01-22 06:42] LABS: Blood Urea Nitrogen 22 mg/dl (7-17)
[2021-01-22 06:43] LABS: Anion Gap 8.6 mEq/L (5-15); Calcium 9.1 mg/dl (8.4-10.2); Carbon Dioxide 35 mmol/L (22.0-30.0); Chol/HDL Ratio 2.8 (1-3.5); Cholesterol 293 mg/dl (140-200); Creatinine Clearance Estimated 31 mL/min (50-200); Estimated Glomerular Filt Rate 71 ml/min (>60); GFR (African American) 85 ML/MIN (>60); Glucose 89 mg/dl (74-100); HDL Cholesterol 105 mg/dl (40-60); Triglycerides 66 mg/dl (30-150); VLDL Cholesterol 13 mg/dL (0-40)
[2021-01-22 06:54] LABS: Direct LDL Cholesterol 147.58 mg/dL (100-129)
--- NOTE | 2021-01-22 07:32 | HMH.PHAVTE ---
[facility] Pharmacy VTE Monitoring - Patient Demographics Admission date: 01/21/21 Report Date: 01/22/21 Time: 07:32 Allergies/Adverse Reactions: Patient Allergies levofloxacin [From Levaquin] Allergy (Mild, Verified 05/16/20 06:19) rash and itching Height: 1.42 m Weight: 39.009 kg Patient Problems: Current Active Problems Troponin level elevated (Acute) COVID-19 (Acute) - VTE Risk Labs: VTE Related Lab Results Hgb 14.0 g/dL (12.2-16.2) D 01/22/21 05:55 Hct 43.8 % (37.0-47.0) 01/22/21 05:55 Plt Count 177 K/mm3 (142-424) 01/22/21 05:55 BUN 22 mg/dl (7-17) H 01/22/21 05:55 Creatinine 0.80 mg/dl (0.52-1.04) 01/22/21 05:55 Estimated Creat Clear 31 mL/min (50-200) 01/22/21 05:55 - Prophylaxis VTE Prophylaxis Ordered?: Yes Types of VTE Prophylaxis: TEDS Knee High Location of Applied Device: Bilateral Lower Extremeties
--- NOTE | 2021-01-22 08:50 | CA_ITS ---
APPROVED REPORT EXAM: Comprehensive 2D, Doppler, and color-flow Echocardiogram Flattening Machine Operator: Yary De Anda, RCS, RVS Ht: 4 ft 6 in Wt: 86lbs BSA: 1.21 BP: 177/92 mmHg Indications: COVID, COPD, HTN, HLD, Ex-smoker Echo Enhancing Agent Comments: Technically difficult exam due to isolation room, pt inability to tolerate imaging pressure 2D Dimensions IVSd 1.00 cm LVEF (Visual) 73.70 % PWd 0.78 cm LA Volume 27.40 mL LVDd 3.74 cm LA Volume Index 22.83 mL/m2 (M/F) 16-34 LVDs 2.17 cm RVID Base (AP4) 1.90 cm (M/F) 2.5-4.1 LVOT 1.94 cm (M/F) 1.5-2.5 M-Mode Dimensions LA Diam 3.47 cm (1.9-4.0) Ao Diam 2.97 cm (2.0-3.7) EPSs 0.47 cm TAPSE 1.23 (<1.7) LV Diastology E Decel Time 350.00 (160-240 msec) E/A Ratio 0.60 MED E' 5.70 (< 7 cm/sec) MED A' 9.40 cm/s E'/MED E' Ratio 10.00 (>14) LAT E' 5.70 (<10 cm/sec) LAT A' 7.00 cm/s E/LAT E' Ratio 10.00 (>14) Aortic Valve LVOT Max 102.00 (70-110 cm/s) LVOT VTI 20.98 cm Mitral Valve MV A Velocity 95.00 (40-130 cm/s) E/A Ratio 0.60 MV Decel. Time 350.00 (160-240 ms) Tricuspid Valve TR P. Velocity 257.00 cm/s RAP Estimate 10.00 mmHg RVSP 36.50 mmHg Left Ventricle Left atrium is mildly enlarged, left ventricle is normal size, mild concentric left ventricular hypertrophy, visually estimated ejection fraction 55% with no regional wall motion abnormality, grade 1 diastolic dysfunction seen without tissue Doppler evidence of raise left atrial pressure. Right Ventricle Right atrium and right ventricle are normal size and contractility. Aortic Valve Aortic valve is minimally thickened and fibrosed, there is no aortic stenosis or aortic insufficiency. Mitral Valve Mitral valve is grossly normal, there is mild mitral regurgitation. Tricuspid Valve Tricuspid grossly normal, there is mild tricuspid regurgitation, calculated right ventricular systolic pressure 32 mmHg. Pulmonic Valve Pulmonic valve is poorly visualized. Great Vessels Aortic root is normal size. Inferior vena cava is not well visualized. Pericardium No significant pericardial effusion noted. Conclusion 1. Technically difficult study because of the patient factors and poor acoustic windows. 2. Mildly dilated, normal left ventricular size, mild concentric left ventricular hypertrophy visually estimated ejection 55% with no regional wall motion abnormality. Grade 1 diastolic dysfunction seen without tissue Doppler evidence of raise left atrial pressure. 3. Mild mitral and tricuspid regurgitation, calculated right ventricular systolic pressure 32 mmHg. 4. No significant pericardial effusion noted. 5. Inferior vena cava is not well visualized. Electronically signed by : Mike Solis MD 01/22/2021 19:54:32
--- NOTE | 2021-01-22 10:22 | HMH.PHAINT ---
MEDICATION RECONCILIATION COMPLETED ON PATIENT USING EXTERNAL FILL HISTORY FROM PHARMACY. -LUDMILA BLOOD, VASILED
--- NOTE | 2021-01-22 10:48 | HMH.HP ---
*Admission Date: 01/21/21 *Chief complaint: Cough/weakness/COVID-19 *History of present illness: 70-year-old white female who has chosen not to be vaccinated from Covid because my daughter did not want me to who has been exposed to COVID-19 and became symptomatically ill. She came to the emergency department here where she was found to have a minimal oxygen requirement and have some evidence of dehydration. However, she was also found to have troponin elevation which accelerated on the second draw and was admitted to hospital for oxygen therapy, supportive care and cardiology consultation. Her primary care provider is a nurse practitioner based clinic in [place], [place]. [facility] [place] History I have reviewed the patient's past medical history: Yes Medical History: Reports:: Chronic Obstructive Pulmonary Disease (COPD), Hyperlipidemia, Hypertension, Peripheral Vascular Disease Denies:: Cancer, Diabetes Mellitus Type 1, Diabetes Mellitus Type 2, Internal Pacemaker, MRSA *Have you ever received a pneumonia vaccine?: No *Have you received a flu vaccine this season?: No Other Medical History: Reports: Hypothyroidism Other Surgeries: Yes: Tubal Ligation. No: Pacemaker Amputation: No Fractures: No - *Social History Last grade of school completed: 11th or 12th Smoking Status: Current every day smoker Tobacco Type: cigarettes, smokeless tobacco # Packs/Day (cigarettes): 1 Alcohol Intake: never *Occupational Status:: unemployed Household Members: children *Travel in the last 8 weeks: None Family Hx:: Heart Attack, Hypertension Review of Systems - Review of Systems Review of systems:: pertinent systems reviewed and negative unless documented below - *Neurologic Reports weakness (generalized weakness) Meds Home Medications Medication Instructions Recorded Confirmed Type Albuterol Sulfate [Albuterol 2.5 mg IH TID 05/16/20 01/22/21 History 0.083% 2.5mg/3mL neb] Aspirin [Aspirin 81mg EC Tab] 81 mg PO DAILY 05/16/20 01/22/21 History Atorvastatin Calcium [Lipitor 40mg 40 mg PO HS 05/16/20 01/22/21 History Tablet*] Azithromycin [Zithromax 250mg tab] 250 mg PO MOWEFR 05/16/20 01/22/21 History Clopidogrel Bisulfate [Plavix 75mg 75 mg PO DAILY 05/16/20 01/22/21 History Tab] Isosorbide Dinitrate 30 mg PO DAILY 05/16/20 01/22/21 History Levothyroxine Sodium 50 mcg PO DAILY 05/16/20 01/22/21 History [Levothyroxine 50mcg (0.05mg) Tab] Loratadine [Claritin] 10 mg PO DAILYP PRN 05/16/20 01/22/21 History Metoprolol Tartrate [Lopressor 50 mg PO DAILY 05/16/20 01/22/21 History 50mg tablet] Venlafaxine HCl [Venlafaxine HCl 150 mg PO DAILY 05/16/20 01/22/21 History ER] lisinopriL [Lisinopril] 10 mg PO DAILY 05/16/20 01/22/21 History LORazepam [Lorazepam 0.5mg Tablet] 0.5 mg PO BID #60 tab 05/19/20 01/22/21 Rx predniSONE [Prednisone 2.5mg 2.5 mg PO DAILY 01/22/21 01/22/21 History Tab] Allergies Allergy/AdvReac Type Severity Reaction Status Date / Time levofloxacin [From [place]] Allergy Mild rash and Verified 05/16/20 06:19 itching Exam Vital signs and Labs for Last 24 Hours: Temp Pulse Resp BP Pulse Ox 99.5 F 78 20 154/90 H 100 01/22/21 08:00 01/22/21 08:00 01/22/21 08:00 01/22/21 08:00 01/22/21 08:00 Laboratory Results - last 24 hr 01/21/21 09:55: SARS-CoV-2 (PCR) Detected A, Influenza A Untype (PCR) Not detected, Influenza Type B (PCR) Not detected 01/21/21 10:55: WBC 7.2, RBC 4.26, Hgb 12.4, Hct 40.0, MCV 93.7, MCH 29.1, MCHC 31.1 L, RDW 12.9, Plt Count 214, MPV 8.0, Neut % (Auto) 79.9, Lymph % (Auto) 11.7, Catron % (Auto) 5.9, Eos % (Auto) 2.1, Baso % (Auto) 0.4, Neut # (Auto) 5.8, Lymph # (Auto) 0.9, Catron # (Auto) 0.4, Eos # (Auto) 0.2, Baso # (Auto) 0.0 01/21/21 10:55: Sodium 141, Potassium 4.1, Chloride 100, Carbon Dioxide 39 H, Anion Gap 6.1, BUN 23 H, Creatinine 0.80, Estimated Creat Clear 30, Estimated GFR 71, Est GFR ( Amer) 85, Glucose 102 H, Calcium 9.3, To
--- NOTE | 2021-01-22 15:27 | PC.NURSE ---
PT IS SITTING UP IN THE CHAIR. ALERT AND ORIENTED X4. IT TOOK SOME ENCOURAGEMENT TO GET PT TO CLEAN UP AND SIT UP IN THE CHAIR. ACCORDING TO FAMILY PT SLEEPS A LOT DURING THE DAY WHEN SHE IS AT HOME. PT IS NOT WANTING TO EAT ANYTHING THIS SHIFT BUT HAS BEEN DRINKING OKAY. LUNG SOUNDS DIMINISHED. ABDOMEN SOFT/NON TENDER WITH ACTIVE BOWEL SOUNDS. NSR ON TELEMETRY. NO COMPLAINTS OF SOA OR CHEST PAIN. WILL CONTINUE TO MONITOR.
[2021-01-22 16:31] LABS: Alanine Aminotransferase 33 U/L (12-78); Albumin/Globulin Ratio 1.4 (1.1-1.8); Alkaline Phosphatase 87 U/L (38-126); Anion Gap 7.5 mEq/L (5-15); Aspartate Amino Transferase 58 U/L (14-36); Bilirubin,Total 0.3 mg/dl (0.2-1.3); Blood Urea Nitrogen 24 mg/dl (7-17); Calcium 9.3 mg/dl (8.4-10.2); Carbon Dioxide 38 mmol/L (22.0-30.0); Chloride 98 mmol/L (98-107); Creatinine Clearance Estimated 31 mL/min (50-200); Estimated Glomerular Filt Rate 71 ml/min (>60); GFR (African American) 85 ML/MIN (>60); Globulin 2.8 g/dL (1.3-3.2); Glucose 93 mg/dl (74-100); Potassium 4.5 mmoL/L (3.5-5.1); Sodium 139 mmol/L (136-145); Total Protein,Serum 6.8 g/dl (6.3-8.2)
[2021-01-23] VITALS (9 sets, daily range): BP systolic 132–155; BP diastolic 63–102; PULSE 66–112; RESP 15–22; TEMP 36.4–36.8; O2SAT 95–100; BMI 19.5
--- NOTE | 2021-01-23 08:53 | HMH.ACPN2 ---
Internal Medicine - PN: Subj *Date: 01/23/21 *Time: 13:46 Interval history: Appears quite fatigued today. Denies any nausea or vomiting. Has a poor appetite however. Remains afebrile and hemodynamically stable. No diarrhea or constipation. Stable oxygen requirement 2 to 3 L. Exam Vital signs and Labs for Last 24 Hours: Temp Pulse Resp BP Pulse Ox 97.6 F 89 20 155/102 H 95 01/23/21 05:00 01/23/21 05:00 01/23/21 05:00 01/23/21 05:00 01/23/21 05:00 Laboratory Results - last 24 hr 01/22/21 15:45: Sodium 139, Potassium 4.5, Chloride 98, Carbon Dioxide 38 H, Anion Gap 7.5, BUN 24 H, Creatinine 0.80, Estimated Creat Clear 31, Estimated GFR 71, Est GFR ( Amer) 85, Glucose 93, Calcium 9.3, Total Bilirubin 0.3, AST 58 H, ALT 33 D, Alkaline Phosphatase 87, Total Protein 6.8, Albumin 4.0, Globulin 2.8, Albumin/Globulin Ratio 1.4 I & O for Last 24 hours: Intake & Output 01/20/21 01/21/21 01/22/21 01/23/21 23:59 23:59 23:59 23:59 Intake Total 480 / 480 846 / 846 Balance 480 / 480 846 / 846 Weight 39.009 kg 39 kg - Constitutional mild distress, thin Comments: frail - *Routine HEENT Exam Head: Present: normocephalic Eye: Present: EOMI, PERRL ENT: Present: mucous membranes moist - *Routine Neck Exam Present: supple. Absent: lymphadenopathy - *Routine Respiratory Exam Present: prolonged expiratory phase, distant breath sounds. Absent: rhonchi, wheezes - *Routine Cardiovascular Exam Present: RRR - *Routine Abdominal Exam Present: soft, normoactive bowel sounds. Absent: tenderness - *Routine Extremities Exam Absent: cyanosis, clubbing, edema - *Routine Skin Exam Present: warm. Absent: rash - *Routine Neurological Exam Present: alert, oriented X3 Assessment and Plan (1) COVID-19 Status: Acute Category: Medical Code(s): U07.1 - COVID-19 (2) Troponin level elevated Status: Acute Category: Medical Code(s): R77.8 - Other specified abnormalities of plasma proteins (3) Acute exacerbation of chronic obstructive airways disease Status: Acute Category: Medical Code(s): J44.1 - Chronic obstructive pulmonary disease with (acute) exacerbation (4) Essential hypertension Status: Chronic Category: Medical Code(s): I10 - Essential (primary) hypertension - Assessment and plan all Dx Assessment and Plan for all problems:: 70-year-old unvaccinated female with history of COPD. Admitted for Covid pneumonia. Acute on chronic hypoxemic respiratory failure. Problems addressed as follows COVID-19 pneumonia Acute on chronic respiratory failure -Supplemental oxygen as required for goal sats greater than 90%. Stable on nasal cannula at this time -Covid treatment per protocol including remdesivir, steroids, vitamins, prophylactic anticoagulation -Breathing treatments initiated 4 times a day -Aggressive pulmonary toilet, encourage incentive spirometry Hypertension -No adjustments to regimen today, as long she remains below 180/100, no acute treatment needed. Monitor closely Labs daily Regular diet Full code Continues to require inpatient management
[2021-01-23 10:43] LABS: Chloride 102 mmol/L (98-107); Potassium 4.3 mmoL/L (3.5-5.1); Sodium 141 mmol/L (136-145)
[2021-01-23 10:46] LABS: Alanine Aminotransferase 49 U/L (12-78); Albumin Level 3.5 g/dl (3.5-5.0); Albumin/Globulin Ratio 1.3 (1.1-1.8); Alkaline Phosphatase 77 U/L (38-126); Anion Gap 8.3 mEq/L (5-15); Aspartate Amino Transferase 80 U/L (14-36); Blood Urea Nitrogen 31 mg/dl (7-17); Carbon Dioxide 35 mmol/L (22.0-30.0); Creatinine Clearance Estimated 31 mL/min (50-200); Estimated Glomerular Filt Rate 71 ml/min (>60); GFR (African American) 85 ML/MIN (>60); Globulin 2.6 g/dL (1.3-3.2); Total Protein,Serum 6.1 g/dl (6.3-8.2)
[2021-01-23 10:47] LABS: Bilirubin,Total < 0.1 mg/dl (0.2-1.3); Glucose 101 mg/dl (74-100)
--- NOTE | 2021-01-23 11:10 | PC.NURSE ---
during am assessment and med pass, pt states that she wants to be lazy when asked what she meant, pt stated that she wanted staff to do things for her. such as hold water and get give her drinks between each pill she was given. pt was assisted in this manner but was encouraged to be independent r/t becoming weaker if not attempting to do for herself.
[2021-01-24] VITALS: BP 164/80; PULSE 86; PULSE 90; RESP 16; TEMP 36.9; O2SAT 96
--- NOTE | 2021-01-24 03:03 | PC.NURSE ---
A&OX4. TOLERATING 2LNC WELL. STANDBY ASSIST IN ROOM. HAS HAD NO C/O THUS FAR THIS SHIFT. VSS WILL CONTINUE TO MONITOR.
[2021-01-24 04:00] VITALS: PULSE 80
[2021-01-24 04:09] VITALS: BP 132/74; PULSE 86; RESP 20; TEMP 36.7; O2SAT 99
[2021-01-24 04:33] VITALS: BMI 20.2
[2021-01-24 08:00] VITALS: BP 155/99; PULSE 110; PULSE 97; RESP 20; TEMP 37.1; O2SAT 97
[2021-01-24 08:46] LABS: MANUAL DIFFERENTIAL MANUAL DIFFERENTIAL (MANUAL DIFF)
[2021-01-24 08:52] LABS: Chloride 100 mmol/L (98-107); Sodium 140 mmol/L (136-145)
[2021-01-24 08:53] LABS: Potassium 3.8 mmoL/L (3.5-5.1)
[2021-01-24 08:55] LABS: Alanine Aminotransferase 46 U/L (12-78); Albumin Level 3.8 g/dl (3.5-5.0); Albumin/Globulin Ratio 1.4 (1.1-1.8); Alkaline Phosphatase 71 U/L (38-126); Anion Gap 8.8 mEq/L (5-15); Aspartate Amino Transferase 74 U/L (14-36); Bilirubin,Total 0.2 mg/dl (0.2-1.3); Blood Urea Nitrogen 31 mg/dl (7-17); Carbon Dioxide 35 mmol/L (22.0-30.0); Creatinine Clearance Estimated 33 mL/min (50-200); Estimated Glomerular Filt Rate 71 ml/min (>60); GFR (African American) 85 ML/MIN (>60); Globulin 2.7 g/dL (1.3-3.2); Total Protein,Serum 6.5 g/dl (6.3-8.2)
[2021-01-24 08:56] LABS: Calcium 8.8 mg/dl (8.4-10.2); Glucose 114 mg/dl (74-100)
--- NOTE | 2021-01-24 10:59 | HMH.DCSUM ---
General - General Admission date:: 01/21/21 Discharge date: 01/24/21 HPI HPI: 70-year-old white female who has chosen not to be vaccinated from Covid because my daughter did not want me to who has been exposed to COVID-19 and became symptomatically ill. She came to the emergency department here where she was found to have a minimal oxygen requirement and have some evidence of dehydration. However, she was also found to have troponin elevation which accelerated on the second draw and was admitted to hospital for oxygen therapy, supportive care and cardiology consultation. Her primary care provider is a nurse practitioner based clinic in [place], [place]. Hospital Course Hospital Course: Patient was admitted. Started on oxygen therapy and standard currently accepted COVID-19 therapy per current EUA guidelines. Patient improved very nicely over the next 24 hours and went back to her baseline 2 L nasal cannula very quickly. She was weak but otherwise in no distress and vital signs normalized very nicely. She tolerated dexamethasone well. This morning she was doing well, normal/routine oxygen requirement. Able to do self-care activities. Eating well, no diarrhea and wished to go home. Plan will be to discharge her home in the care of her daughter who is also afflicted with COVID-19 at home. I advised her to obtain vaccination in the next 60 days. We will get home health involved for PT/OT/home safety evaluation we will follow her up by telemedicine visit on Friday of next week. Troponin levels were mildly elevated on admission. Echocardiogram was performed which revealed very minimal evidence of diastolic dysfunction and no wall motion abnormalities. Objective Vital signs: Temp Pulse Resp BP Pulse Ox 98.7 F 97 H 20 155/99 H 97 01/24/21 08:00 01/24/21 08:00 01/24/21 08:00 01/24/21 08:00 01/24/21 08:00 no acute distress, thin, cachectic - *Routine HEENT Exam Head: Present: normocephalic Eye: Present: EOMI, PERRL ENT: Present: mucous membranes moist - *Routine Neck Exam Present: supple - *Routine Respiratory Exam Present: rhonchi Comments: Good air movement in all lung handley - *Routine Cardiovascular Exam Present: RRR - *Routine Abdominal Exam Present: soft, normoactive bowel sounds. Absent: tenderness - *Routine Extremities Exam Absent: cyanosis, clubbing, edema - *Routine Skin Exam Present: warm. Absent: rash - Detailed Eye Exam Eyelids: Bilateral normal inspection Results Labs on day of discharge: Labs from last 24 hours 01/24/21 08:25 Sodium 140 Potassium 3.8 Chloride 100 Carbon Dioxide 35 H Anion Gap 8.8 BUN 31 H Creatinine 0.80 Estimated Creat Clear 33 Estimated GFR 71 Est GFR ( Amer) 85 Glucose 114 H Calcium 8.8 Total Bilirubin 0.2 AST 74 H ALT 46 Alkaline Phosphatase 71 Total Protein 6.5 Albumin 3.8 Globulin 2.7 Albumin/Globulin Ratio 1.4 DS: Diagnosis - Discharge Diagnosis (1) COVID-19 Status: Acute (2) Troponin level elevated Status: Resolved (3) Acute exacerbation of chronic obstructive airways disease Status: Acute (4) Essential hypertension Status: Chronic Discharge Plan - Patient Discharge Instructions ACTIVITY: Continue current activity, Up with assistance DIET: continue same diet Patient Instructions: DI for COVID-19 (Suspected or Confirmed ), Nutrition and Hydration: [employer] in the Fight Against COVID-19 - Follow up Plan Follow up with: Sal Reinoso MD [Staff Physician] - 01/29/21 Disposition: Home Health Service Condition at discharge:: Improved Home Medications: Home Medications Medication Instructions Recorded Confirmed Type Albuterol Sulfate [Albuterol 2.5 mg IH TID 05/16/20 01/22/21 History 0.083% 2.5mg/3mL neb] Aspirin [Aspirin 81mg EC Tab] 81 mg PO DAILY 05/16/20 01/22/21 History Atorvastatin Calcium [Lipitor 40mg 40 mg PO
[2021-01-24 11:07] VITALS: BP 140/61; PULSE 57; RESP 18; TEMP 36.8; O2SAT 98
--- NOTE | 2021-01-24 11:22 | SW/DCPLANNER ---
RECEIVED REFERRAL FOR THIS PATIENT FOR HOME HEALTH PT/OT AND LONG TERM FOR THIS PATIENT.... I HAD TO FIND AN AGENCY THAT WILL TAKE COVID PATIENTS AND FRED AT HOME DOES.. I GAVE REFERRAL TO THIS AGENCY SINCE WE ARE LIMITED TO AGENCIES THAT WILL PROVIDE SERVICES WHEN PATIENT IS STILL ACTIVE WITH COVID.. DISCHARGING HOME TODAY WITH HOME HEALTH TO CONTACT PATIENT AND START SERVICES IN THE AM....
[2021-01-24 12:00] VITALS: PULSE 70
--- NOTE | 2021-01-24 12:02 | HMH.PTEV ---
Physical Therapy Evaluation Rehab PT IP Evaluation Start: 01/24/21 07:56 Freq: ONCE Status: Active Protocol: Document 01/24/21 11:59 BETNIA (Rec: 01/24/21 12:01 PHORNALLELY [id number]) Subjective/History History History 70 yowf adm to [facility] with COVID- 19 related weakness and SOA. She reports she lives with daughter, no steps to enter the home, and she is generally independent with all mobility walking from one piece of furniture to the other. Subjective Subjective Pt reports she feels a little better, but still feels weak. Rehab PT IP Eval Objective Appearance Patient Behavior Appropriate Patient Orientation Person,Place,Time Difficulty following instructions none Speech Pattern Clear Ambulation Patient Able to Ambulate Yes Ambulation Observation IP General Gait Pattern Observation Shuffling Step Ambulation Distance (feet) 5 Ambulation Assistive Device None Ambulation Ability Contact Guard/Hand Hold Balance Ability to Arise Able, uses arms to help Sitting Balance Steady, safe Standing Balance Narrow stance w/o support Dynamic Sitting Balance Ability Good Dynamic Standing Balance Ability Fair Transfers Bed Transfer Ability Supervision/Stand by Chair Transfer Ability Contact Guard/Hand Hold Sit to Stand Bed Transfer Ability Contact Guard/Hand Hold Sit to Stand Chair Transfer Ability Contact Guard/Hand Hold Rehab PT IP prob,goals,plan Problems Date of Evaluation: 01/24/21 Discharge Plan PT Discharge Plan Pt appears to be at baseline for transfers and ambulation at this time and is appropriate to return home once medically stable if she has assistance available. G -code Required No Eval Complexity Eval Charge Codes 63374 - Moderate Complexity PHYSICIAN CERTIFICATION: I certify the specified therapy services for Saray Pinzon are required, authorized, and reviewed every 30 days.
[2021-01-24 12:21] LABS: Eosinophils % 0.3 % (0.1-12.0); Hemoglobin 10.9 g/dL (12.2-16.2); Lymphocytes # 1.1 K/mm3 (0.7-4.5); Lymphocytes % 11.2 % (10-50); Mean Corpuscular HGB Conc 32.9 g/dL (31.8-35.4); Mean Corpuscular Hemoglobin 29.7 pg (27.0-31.2); Mean Corpuscular Volume 90.2 fl (81-99); Mean Platelet Volume 9.2 fl (7.4-10.4); Monocytes # 0.4 K/mm3 (0.1-1.0); Neutrophils # 8.2 K/mm3 (1.8-7.8); Neutrophils % 84.5 % (37.0-80.0); Platelet Count 193 K/mm3 (142-424); Red Blood Count 3.66 M/mm3 (4.20-5.40); Red Cell Distribution Width 13.5 % (11.5-17.5); White Blood Count 9.7 K/mm3 (4.8-10.8)
[2021-01-24 14:54] LABS: Eosinophils % 1 % (0-3); Lymphocytes % 15 % (10-50); Monocytes % 5 % (2-9); Neutrophils % 79 % (42-76); Platelet Estimate Normal; Total Cells Counted 100
== END 2021-01-24 15:20 | disposition home health service (06) ==
LOC: ER 15:19 → 2ND 19:06 → ICU 22:58
PROVIDERS: Internal Medicine Adolescent Medicine; Admitting Provider Internal Medicine Adolescent Medicine; Emergency Provider Student in an Organized Health Care Education/Training Program; PCP Nurse Practitioner Family; Visit Provider Internal Medicine Adolescent Medicine
DX: U07.1 COVID-19 (principal); J44.1 Chronic obstructive pulmonary disease with (acute) exacerbation; I10 Essential (primary) hypertension; Z79.01 Long term (current) use of anticoagulants; Z79.899 Other long term (current) drug therapy; E03.9 Hypothyroidism, unspecified; E78.5 Hyperlipidemia, unspecified; F17.210 Nicotine dependence, cigarettes, uncomplicated
CPT/HCPCS: G0378; 36415; 71045; 80048; 80053; 80061; 83735; 84484; 85007; 85014; 85018; 85025; 85048; 85049; 93005; 93306; 94640; 94760; 97162; 97165; 99284; C9803; J2405; U0003; U0005

== ENCOUNTER 2021-02-02 16:29 | Inpatient (IN) | payer MEDICARE, MEDICAID, SELFPAY ==
[2021-02-02] VITALS (11 sets, daily range): BP systolic 154–209; BP diastolic 69–106; PULSE 63–133; RESP 14–28; TEMP 36.9–37; O2SAT 96–99; BMI 18.3; BMI 17.6
--- NOTE | 2021-02-02 16:53 | XR_ITS ---
PROCEDURE INFORMATION: Exam: XR Chest Exam date and time: 02/02/2021 4:53 PM Age: 70 years old Clinical indication: Shortness of breath; Patient HX: HX covid TECHNIQUE: Imaging protocol: XR of the chest. Views: 1 view. Total images: 1 COMPARISON: CR XR CHEST PORTABLE 01/21/2021 10:45 AM FINDINGS: Lungs: Moderate emphysematous changes. Pulmonary vasculature grossly normal. New patchy alveolar opacities in the peripheral left base concerning for pneumonia or atypical edema pattern. Pleural spaces: Blunted costophrenic angles, right greater than left, consistent with chronic pleural scarring versus small basilar effusions. Mild bilateral apical pleural/parenchymal scarring unchanged. No pneumothorax. Heart/Mediastinum: Heart size normal. No tracheal/mediastinal shift. Vasculature: The aorta demonstrates mild ectasia/tortuosity and moderate calcific atherosclerosis. Vascular stent in the superior mediastinum grossly unchanged. Bones/joints: No acute osseous abnormalities are identified. Osteopenia. Chronic appearing posterior rib fractures bilaterally. IMPRESSION: 1. New peripheral alveolar opacities in the left base concerning for pneumonia versus atypical edema pattern. 2. Moderate emphysematous changes.
--- NOTE | 2021-02-02 17:03 | PC.NURSE ---
pt arrived per EMS on 100% on NRB pt placed on high flow nasal cannula per RT at 15L will continue to monitor
--- NOTE | 2021-02-02 17:30 | PC.NURSE ---
notified RT of vbg order
[2021-02-02 17:47] LABS: Basophils # 0.1 K/mm3 (0-0.2); Basophils % 0.7 % (0.1-2.0); Eosinophils % 0.2 % (0.1-12.0); Hematocrit 41.5 % (37.0-47.0); Hemoglobin 12.7 g/dL (12.2-16.2); Lymphocytes % 8.5 % (10-50); Mean Corpuscular HGB Conc 30.7 g/dL (31.8-35.4); Mean Corpuscular Hemoglobin 28.8 pg (27.0-31.2); Mean Corpuscular Volume 93.7 fl (81-99); Mean Platelet Volume 9.8 fl (7.4-10.4); Monocytes # 0.6 K/mm3 (0.1-1.0); Monocytes % 4.9 % (1.7-9.3); Neutrophils # 10.3 K/mm3 (1.8-7.8); Neutrophils % 85.7 % (37.0-80.0); Platelet Count 284 K/mm3 (142-424); Red Blood Count 4.42 M/mm3 (4.20-5.40); Red Cell Distribution Width 13.2 % (11.5-17.5)
[2021-02-02 17:50] LABS: Chloride 94 mmol/L (98-107); Lactic Acid 1.8 mmol/L (0.7-2.1)
[2021-02-02 17:51] LABS: MANUAL DIFFERENTIAL MANUAL DIFFERENTIAL (MANUAL DIFF); Potassium 4.5 mmoL/L (3.5-5.1); Sodium 139 mmol/L (136-145)
[2021-02-02 17:53] LABS: Alanine Aminotransferase 23 U/L (12-78); Alkaline Phosphatase 85 U/L (38-126); Aspartate Amino Transferase 47 U/L (14-36); Bilirubin,Total 0.5 mg/dl (0.2-1.3); Blood Urea Nitrogen 40 mg/dl (7-17); Creatinine Clearance Estimated 23 mL/min (50-200); Estimated Glomerular Filt Rate 40 ml/min (>60); GFR (African American) 49 ML/MIN (>60)
[2021-02-02 17:54] LABS: Activated Partial Thrombo Time 24.2 seconds (22.8-30.6); Albumin/Globulin Ratio 1.4 (1.1-1.8); Calcium 9.8 mg/dl (8.4-10.2); Globulin 2.9 g/dL (1.3-3.2); Glucose 101 mg/dl (74-100); Prothrombin Time 10.2 seconds (10.1-12.5); Total Protein,Serum 6.9 g/dl (6.3-8.2)
[2021-02-02 17:55] LABS: VBG Base Excess 7.7 mmol/L (-2.4-2.3); VBG HCO3 32.6 mmol/L (23-30); VBG Oxygen Saturation 66.1 % (50-70); VBG PO2 32.5 mmol/L (28-40); VBG Total CO2 34.3 mmol/L (23-27)
[2021-02-02 17:57] LABS: VBG PCO2 54.5 mmol/L (35-51)
--- NOTE | 2021-02-02 17:59 | PC.NURSE ---
notified ALTHEA ROMERO of VGB results
[2021-02-02 18:01] LABS: Anion Gap 12.5 mEq/L (5-15); Carbon Dioxide 37 mmol/L (22.0-30.0)
[2021-02-02 18:06] LABS: Troponin I 0.05 ng/ml (0.00-0.034)
--- NOTE | 2021-02-02 18:10 | PC.NURSE ---
ALTHEA ROMERO speaking with who is instructional support services director for service
--- NOTE | 2021-02-02 18:19 | HMH.EDGENADL ---
ED Disposition Clinical Impression: HAP (hospital-acquired pneumonia) Disposition: Admitted As Inpatient Condition on Discharge: Good Referrals: Dariana Ospina [Primary Care Provider] - - Critical Care Critical Care Time: Yes Attestation: On 02/02/21, the high probability of a clinically significant, sudden or life threatening deterioration of the following system(s) required my full and direct attention, intervention and personal management. The time I documented below is in addition to time spent performing reported procedures but includes the following listed in this critical care notation. Total Critical Care Time: 35 Vital system(s) involved:: Respiratory Failure, Shock (Septic) My critical care processes included: Assessment & monitoring of V/S, Initial and Re-exams, Data Review/Interpretation, Coordinating Care, Medication Orders and management, Documentation Medical Decision Making - Medical Records Medical records reviewed: Yes: I reviewed the patient's medical records. - [place] Inquiry Pt receiving controlled substance: No [place] was queried for this patient: No Vital Signs: 02/02/21 16:29 02/02/21 17:30 Temperature 98.4 F Temperature Source Oral Pulse Rate 63 Pulse Rate [Right Radial] 133 H Respiratory Rate 28 H 16 Blood Pressure 208/106 H Blood Pressure [Right Arm] 176/99 H Blood Pressure Mean 140 Blood Pressure Mean [Right Arm] 124 Blood Pressure Source [Right Arm] Automatic Cuff Blood Pressure Position [Right Arm] Sitting 02 Sat by Pulse Oximetry 98 97 Oxygen Delivery Method Nasal Cannula Nasal Cannula Oxygen Flow Rate (LPM) 15 15 - Lab Data Lab results reviewed: Yes: I reviewed the patient's lab results. Lab Results 02/02/21 16:53: VBG pH 7.40, VBG pCO2 54.5 H, VBG pO2 32.5, VBG HCO3 32.6 H, VBG Total CO2 34.3 H, VBG O2 Saturation 66.1, VBG Base Excess 7.7 H 02/02/21 17:25: WBC 12.0 H, RBC 4.42, Hgb 12.7, Hct 41.5, MCV 93.7, MCH 28.8, MCHC 30.7 L, RDW 13.2, Plt Count 284, MPV 9.8, Neut % (Auto) 85.7 H, Lymph % (Auto) 8.5 L, [place] % (Auto) 4.9, Eos % (Auto) 0.2, Baso % (Auto) 0.7, Neut # (Auto) 10.3 H, Lymph # (Auto) 1.0, [place] # (Auto) 0.6, Eos # (Auto) 0.0, Baso # (Auto) 0.1, Total Counted 100, Neutrophils % (Manual) 85 H, Lymphocytes % (Manual) 10, Monocytes % (Manual) 4, Eosinophils % (Manual) 1, Platelet Estimate Normal, Hypochromasia 2+, Stomatocytes 1+ 02/02/21 17:25: PT 10.2, INR 0.90, APTT 24.2 02/02/21 17:25: Sodium 139, Potassium 4.5, Chloride 94 L, Carbon Dioxide 37 H, Anion Gap 12.5, BUN 40 H, Creatinine 1.30 H, Estimated Creat Clear 23, Estimated GFR 40 L, Est GFR ( Amer) 49 L, Glucose 101 H, Calcium 9.8, Total Bilirubin 0.5, AST 47 H, ALT 23, Alkaline Phosphatase 85, Troponin I 0.05 H, Total Protein 6.9, Albumin 4.0, Globulin 2.9, Albumin/Globulin Ratio 1.4 02/02/21 17:25: Lactate 1.8 Result diagrams: 02/02/21 17:25 02/02/21 17:25 Orders (Tests/Meds): ED MEDICATIONS Generic Name Dose Route Start Last Admin Trade Name Freq PRN Reason Stop Dose Admin Sodium Chloride 1,000 mls @ 150 mls/hr 02/02/21 18:15 Sod Chlor 0.9% 1000ml Bag IV 03/04/21 18:14 .[id number] KHADIJAH Cefepime HCl 2 gm/ Sodium 100 mls @ 200 mls/hr 02/02/21 18:15 Chloride IV 02/16/21 18:14 Q12H KHADIJAH Discontinued Medications Generic Name Dose Route Start Last Admin Trade Name Freq PRN Reason Stop Dose Admin Dexamethasone Sodium Phosphate 6 mg 02/02/21 16:53 02/02/21 17:46 Dexamethasone 4mg/Ml 1ml Vial IV 02/02/21 16:54 6 mg ONCE ONE Administration Dexamethasone Sodium Phosphate 4 mg 02/02/21 18:17 Dexamethasone 4mg/Ml 1ml Vial IV 02/02/21 18:18 ONCE ONE ORDERS Category Date Time Status Troponin I Q3H Lab 02/02/21 20:00 Ordered Troponin I Q3H Lab 02/02/21 23:00 Ordered Medical Decision Narrative: Patient is a 70-year-old female with past medical history COPD on 2 L oxygen presenting to the ED for shortness of breath. Patient is awak
[2021-02-02 18:20] LABS: Eosinophils % 1 % (0-3); Hypochromasia 2+; Lymphocytes % 10 % (10-50); Monocytes % 4 % (2-9); Neutrophils % 85 % (42-76); Platelet Estimate Normal; Stomatocytes 1+; Total Cells Counted 100
--- NOTE | 2021-02-02 18:24 | PC.NURSE ---
ER wanted O2 titrated pt trialed on 10L per high flow nasal cannula tolerated well Sa02 98% pt decreased to 5L per high flow nasal cannula, Sa02 96-98% will continue to monitor
--- NOTE | 2021-02-02 18:33 | PC.NURSE ---
notified smokehouse worker of admission
--- NOTE | 2021-02-02 18:53 | PC.NURSE ---
report called to yo montalvo rn on second floor at this time. States they will send staff down to get pt when covid swab is resulted.
[2021-02-02 19:35] LABS: Influenza A, PCR Not Detected (NotDetected); Influenza B, PCR Not Detected (NotDetected)
[2021-02-02 20:04] LABS: Coronavirus 19, PCR Detected (NotDetected)
--- NOTE | 2021-02-02 20:38 | PC.NURSE ---
patient up to floor via stretcher at this time.
[2021-02-02 20:42] LABS: Troponin I 0.07 ng/ml (0.00-0.034)
[2021-02-03] VITALS (8 sets, daily range): BP systolic 146–198; BP diastolic 76–112; PULSE 60–110; RESP 14–20; TEMP 36.3–37; O2SAT 96–100; BMI 18.1
[2021-02-03 00:10] LABS: Troponin I 0.05 ng/ml (0.00-0.034)
--- NOTE | 2021-02-03 06:53 | PC.NURSE ---
Pt unable to recall med list for med rec.
--- NOTE | 2021-02-03 08:52 | HMH.HP ---
*Admission Date: 02/02/21 *Chief complaint: Cough/congestion/shortness of air *History of present illness: 70-year-old white female with oxygen requiring and prednisone requiring emphysema who was diagnosed with COVID-19 approximately 2 weeks ago. She was admitted to the hospital for 2 or 3 days, did well, and was on her regular oxygen requirement and eating well and discharged back to home to finish convalescing from her COVID-19 pneumonia at her home. She was doing well, had home health services who checked on her yesterday and thought that she looked bad and noted that her heart rate was elevated and that she had slightly more oxygen requirement. Brought to the emergency department here where she was found to have a new infiltrate, slightly increased oxygen requirement and she was admitted to hospital for post viral bacterial pneumonia. [facility] History I have reviewed the patient's past medical history: Yes Medical History: Reports:: Chronic Obstructive Pulmonary Disease (COPD), Hyperlipidemia, Hypertension, Peripheral Vascular Disease Denies:: Cancer, Diabetes Mellitus Type 1, Diabetes Mellitus Type 2, Internal Pacemaker, MRSA *Have you ever received a pneumonia vaccine?: No *Have you received a flu vaccine this season?: No Other Medical History: Reports: Hypothyroidism Other Surgeries: Yes: Tubal Ligation. No: Pacemaker Amputation: No Fractures: No - *Social History Last grade of school completed: 11th or 12th Smoking Status: Current every day smoker Tobacco Type: cigarettes # Packs/Day (cigarettes): 1 Alcohol Intake: never *Occupational Status:: unemployed Household Members: children *Travel in the last 8 weeks: None Family Hx:: Heart Attack, Hypertension Review of Systems - Review of Systems Review of systems:: pertinent systems reviewed and negative unless documented below Meds Home Medications Medication Instructions Recorded Confirmed Type Albuterol Sulfate [Albuterol 2.5 mg IH TID 05/16/20 01/22/21 History 0.083% 2.5mg/3mL neb] Aspirin [Aspirin 81mg EC Tab] 81 mg PO DAILY 05/16/20 01/22/21 History Atorvastatin Calcium [Lipitor 40mg 40 mg PO HS 05/16/20 01/22/21 History Tablet*] Azithromycin [Zithromax 250mg tab] 250 mg PO MOWEFR 05/16/20 01/22/21 History Clopidogrel Bisulfate [Plavix 75mg 75 mg PO DAILY 05/16/20 01/22/21 History Tab] Isosorbide Dinitrate 30 mg PO DAILY 05/16/20 01/22/21 History Levothyroxine Sodium 50 mcg PO DAILY 05/16/20 01/22/21 History [Levothyroxine 50mcg (0.05mg) Tab] Loratadine [Claritin] 10 mg PO DAILYP PRN 05/16/20 01/22/21 History Metoprolol Tartrate [Lopressor 50 mg PO DAILY 05/16/20 01/22/21 History 50mg tablet] Venlafaxine HCl [Venlafaxine HCl 150 mg PO DAILY 05/16/20 01/22/21 History ER] lisinopriL [Lisinopril] 10 mg PO DAILY 05/16/20 01/22/21 History LORazepam [Lorazepam 0.5mg Tablet] 0.5 mg PO BID #60 tab 05/19/20 01/22/21 Rx predniSONE [Prednisone 2.5mg 2.5 mg PO DAILY 01/22/21 01/22/21 History Tab] Cefdinir [Omnicef 300mg Capsule] 300 mg PO BID #14 cap 01/24/21 Rx dexAMETHasone [Decadron 4mg tablet] 4 mg PO BID #14 tab 01/24/21 Rx Allergies Allergy/AdvReac Type Severity Reaction Status Date / Time [facility] Allergy Mild rash and Verified 05/16/20 06:19 itching Exam Vital signs and Labs for Last 24 Hours: Temp Pulse Resp BP Pulse Ox 97.9 F 98 H 16 170/89 H 100 02/03/21 04:00 02/03/21 04:00 02/03/21 04:00 02/03/21 04:00 02/03/21 04:00 Laboratory Results - last 24 hr 02/02/21 16:53: VBG pH 7.40, VBG pCO2 54.5 H, VBG pO2 32.5, VBG HCO3 32.6 H, VBG Total CO2 34.3 H, VBG O2 Saturation 66.1, VBG Base Excess 7.7 H 02/02/21 17:25: WBC 12.0 H, RBC 4.42, Hgb 12.7, Hct 41.5, MCV 93.7, MCH 28.8, MCHC 30.7 L, RDW 13.2, Plt Count 284, MPV 9.8, Neut % (Auto) 85.7 H, Lymph % (Auto) 8.5 L, [place] % (Auto) 4.9, Eos % (Auto) 0.2, Baso % (Auto) 0.7, Neut # (Auto) 10.3 H, Lymph # (Auto) 1.0, [place] # (
--- NOTE | 2021-02-03 09:07 | HMH.PHACONS ---
- Pharmacy Consult Date: 02/03/21 Time: 09:07 Referring provider: DR. WINN Reason for Consult:: VANCOMYCIN DOSING Allergies and ADEs:: Allergies Allergy/AdvReac Type Severity Reaction Status Date / Time levofloxacin [From Levaquin] Allergy Mild rash and Verified 05/16/20 06:19 itching Home Medications:: Home Medications Medication Instructions Recorded Confirmed Type Albuterol Sulfate [Albuterol 2.5 mg IH TID 05/16/20 01/22/21 History 0.083% 2.5mg/3mL neb] Aspirin [Aspirin 81mg EC Tab] 81 mg PO DAILY 05/16/20 01/22/21 History Atorvastatin Calcium [Lipitor 40mg 40 mg PO HS 05/16/20 01/22/21 History Tablet*] Azithromycin [Zithromax 250mg tab] 250 mg PO MOWEFR 05/16/20 01/22/21 History Clopidogrel Bisulfate [Plavix 75mg 75 mg PO DAILY 05/16/20 01/22/21 History Tab] Isosorbide Dinitrate 30 mg PO DAILY 05/16/20 01/22/21 History Levothyroxine Sodium 50 mcg PO DAILY 05/16/20 01/22/21 History [Levothyroxine 50mcg (0.05mg) Tab] Loratadine [Claritin] 10 mg PO DAILYP PRN 05/16/20 01/22/21 History Metoprolol Tartrate [Lopressor 50 mg PO DAILY 05/16/20 01/22/21 History 50mg tablet] Venlafaxine HCl [Venlafaxine HCl 150 mg PO DAILY 05/16/20 01/22/21 History ER] lisinopriL [Lisinopril] 10 mg PO DAILY 05/16/20 01/22/21 History LORazepam [Lorazepam 0.5mg Tablet] 0.5 mg PO BID #60 tab 05/19/20 01/22/21 Rx predniSONE [Prednisone 2.5mg 2.5 mg PO DAILY 01/22/21 01/22/21 History Tab] Cefdinir [Omnicef 300mg Capsule] 300 mg PO BID #14 cap 01/24/21 Rx dexAMETHasone [Decadron 4mg tablet] 4 mg PO BID #14 tab 01/24/21 Rx Height: 1.42 m Weight: 36.514 kg Laboratory Results:: Laboratory Results - last 24 hr 02/02/21 16:53: VBG pH 7.40, VBG pCO2 54.5 H, VBG pO2 32.5, VBG HCO3 32.6 H, VBG Total CO2 34.3 H, VBG O2 Saturation 66.1, VBG Base Excess 7.7 H 02/02/21 17:25: WBC 12.0 H, RBC 4.42, Hgb 12.7, Hct 41.5, MCV 93.7, MCH 28.8, MCHC 30.7 L, RDW 13.2, Plt Count 284, MPV 9.8, Neut % (Auto) 85.7 H, Lymph % (Auto) 8.5 L, [place] % (Auto) 4.9, Eos % (Auto) 0.2, Baso % (Auto) 0.7, Neut # (Auto) 10.3 H, Lymph # (Auto) 1.0, [place] # (Auto) 0.6, Eos # (Auto) 0.0, Baso # (Auto) 0.1, Total Counted 100, Neutrophils % (Manual) 85 H, Lymphocytes % (Manual) 10, Monocytes % (Manual) 4, Eosinophils % (Manual) 1, Platelet Estimate Normal, Hypochromasia 2+, Stomatocytes 1+ 02/02/21 17:25: PT 10.2, INR 0.90, APTT 24.2 02/02/21 17:25: Sodium 139, Potassium 4.5, Chloride 94 L, Carbon Dioxide 37 H, Anion Gap 12.5, BUN 40 H, Creatinine 1.30 H, Estimated Creat Clear 23, Estimated GFR 40 L, Est GFR ( Amer) 49 L, Glucose 101 H, Calcium 9.8, Total Bilirubin 0.5, AST 47 H, ALT 23, Alkaline Phosphatase 85, Troponin I 0.05 H, Total Protein 6.9, Albumin 4.0, Globulin 2.9, Albumin/Globulin Ratio 1.4 02/02/21 17:25: Lactate 1.8 02/02/21 18:21: SARS-CoV-2 (PCR) Detected A, Influenza A Untype (PCR) Not detected, Influenza Type B (PCR) Not detected 02/02/21 20:14: Troponin I 0.07 H 02/02/21 23:15: Troponin I 0.05 H Medical History: Reports:: Chronic Obstructive Pulmonary Disease (COPD), Hyperlipidemia, Hypertension, Peripheral Vascular Disease Denies:: Cancer, Diabetes Mellitus Type 1, Diabetes Mellitus Type 2, Internal Pacemaker, MRSA Assessment and Plan (1) HAP (hospital-acquired pneumonia) Status: Acute Category: Medical Code(s): J18.9 - Pneumonia, unspecified organism; Y95 - Nosocomial condition (2) Acute exacerbation of chronic obstructive airways disease Status: Acute Category: Medical Code(s): J44.1 - Chronic obstructive pulmonary disease with (acute) exacerbation (3) COVID-19 Status: Acute Category: Medical Code(s): U07.1 - COVID-19 (4) Protein calorie malnutrition Status: Acute Category: Medical Code(s): E46 - Unspecified protein-calorie malnutrition - Assessment and plan all Dx Assessment and Plan for all problems:: Age: 70 yo Serum creatinine: 1.3 mg/dL Height: 55.9 Inches
--- NOTE | 2021-02-03 12:22 | PC.NURSE ---
spoke with pts daughter regarding home bp meds. She verified dosage. Contacted MD regarding pt hypertension. home bp meds reordered
--- NOTE | 2021-02-03 13:28 | HMH.PHAVTE ---
[facility] Pharmacy VTE Monitoring - Patient Demographics Admission date: 02/03/21 Report Date: 02/03/21 Time: 13:29 Allergies/Adverse Reactions: Patient Allergies levofloxacin [From Levaquin] Allergy (Mild, Verified 05/16/20 06:19) rash and itching Height: 1.42 m Weight: 36.514 kg Patient Problems: Current Active Problems Acute exacerbation of chronic obstructive airways disease (Acute) COVID-19 (Acute) HAP (hospital-acquired pneumonia) (Acute) Protein calorie malnutrition (Acute) - VTE Risk Labs: VTE Related Lab Results Hgb 12.7 g/dL (12.2-16.2) 02/02/21 17:25 Hct 41.5 % (37.0-47.0) 02/02/21 17:25 Plt Count 284 K/mm3 (142-424) 02/02/21 17:25 PT 10.2 seconds (10.1-12.5) 02/02/21 17:25 INR 0.90 (0.9-1.1) 02/02/21 17:25 APTT 24.2 seconds (22.8-30.6) 02/02/21 17:25 BUN 40 mg/dl (7-17) H 02/02/21 17:25 Creatinine 1.30 mg/dl (0.52-1.04) H 02/02/21 17:25 Estimated Creat Clear 23 mL/min (50-200) 02/02/21 17:25 - Prophylaxis Types of VTE Prophylaxis: TEDS Knee High Location of Applied Device: Bilateral Lower Extremeties (PASHA HOSE ORDERED)
--- NOTE | 2021-02-03 18:54 | PC.NURSE ---
pt has done well through out the shift, She gets winded with exertion but is not @ rest. incontinent and uses briefs. No c/o pain
--- NOTE | 2021-02-03 21:55 | PC.NURSE ---
No care needed
[2021-02-04] VITALS (11 sets, daily range): BP systolic 155–190; BP diastolic 58–90; PULSE 60–97; RESP 17–22; TEMP 36.5–36.9; O2SAT 93–99; BMI 19.6; BMI 20.1
--- NOTE | 2021-02-04 02:57 | PC.NURSE ---
A&OX4. TOLERATING 4LNC WELL. PT HAS SLEPT MAJORITY OF SHIFT. HAS HAD NO C/O THUS FAR. COVID PRECAUTIONS IN PLACE. VSS WILL CONTINUE TO MONITOR.
[2021-02-04 07:40] LABS: Basophils # 0.1 K/mm3 (0-0.2); Basophils % 0.9 % (0.1-2.0); Eosinophils # 0.1 K/mm3 (0.0-0.4); Eosinophils % 0.6 % (0.1-12.0); Hematocrit 36.7 % (37.0-47.0); Hemoglobin 11.7 g/dL (12.2-16.2); Lymphocytes # 2.1 K/mm3 (0.7-4.5); Lymphocytes % 17.7 % (10-50); Mean Corpuscular HGB Conc 31.8 g/dL (31.8-35.4); Mean Corpuscular Hemoglobin 29.7 pg (27.0-31.2); Mean Corpuscular Volume 93.5 fl (81-99); Monocytes # 0.7 K/mm3 (0.1-1.0); Monocytes % 5.7 % (1.7-9.3); Neutrophils % 75.1 % (37.0-80.0); Platelet Count 240 K/mm3 (142-424); Red Blood Count 3.92 M/mm3 (4.20-5.40); Red Cell Distribution Width 13.4 % (11.5-17.5)
--- NOTE | 2021-02-04 08:11 | HMH.ACPN2 ---
Internal Medicine - PN: Subj *Date: 02/04/21 *Time: 08:11 Interval history: Patient's respiratory status over the past 24 hours has remained stable. However, she feels very weak, feels like she is nervous, anxious and feels very tired. Exam Vital signs and Labs for Last 24 Hours: Temp Pulse Resp BP Pulse Ox 98.1 F 85 19 160/75 H 93 L 02/04/21 04:00 02/04/21 06:10 02/04/21 04:00 02/04/21 04:00 02/04/21 06:10 Laboratory Results - last 24 hr 02/04/21 07:04: WBC 12.0 H, RBC 3.92 L, Hgb 11.7 L, Hct 36.7 L, MCV 93.5, MCH 29.7, MCHC 31.8, RDW 13.4, Plt Count 240, MPV 11.0 H, Neut % (Auto) 75.1, Lymph % (Auto) 17.7, [place] % (Auto) 5.7, Eos % (Auto) 0.6, Baso % (Auto) 0.9, Neut # (Auto) 9.0 H, Lymph # (Auto) 2.1, [place] # (Auto) 0.7, Eos # (Auto) 0.1, Baso # (Auto) 0.1 I & O for Last 24 hours: Intake & Output 02/01/21 02/02/21 02/03/21 02/04/21 11:59 11:59 11:59 11:59 Intake Total 480 / 480 480 / 480 Balance 480 / 480 480 / 480 Weight 80 lb 8 oz 87 lb 4 oz Narrative: Patient is alert. Comfortably breathing on 2.5 L nasal cannula. Scattered rhonchi and wheezes in the expiratory phase. Heart rate regular. Abdomen soft and nontender. Globally weak. Cachectic appearing. No focal neurologic deficits. Assessment and Plan (1) HAP (hospital-acquired pneumonia) Status: Acute Category: Medical Code(s): J18.9 - Pneumonia, unspecified organism; Y95 - Nosocomial condition (2) Acute exacerbation of chronic obstructive airways disease Status: Acute Category: Medical Code(s): J44.1 - Chronic obstructive pulmonary disease with (acute) exacerbation (3) COVID-19 Status: Acute Category: Medical Code(s): U07.1 - COVID-19 (4) Protein calorie malnutrition Status: Acute Category: Medical Code(s): E46 - Unspecified protein-calorie malnutrition - Assessment and plan all Dx Assessment and Plan for all problems:: Respiratory status seems stabilized. Continue treatment for COPD exacerbation superimposed on Covid pneumonitis. Overall significant debility/anxiety/hypertension-add amlodipine. Restart home venlafaxine and her benzodiazepine dosing. PT/OT evaluation. Patient has been in and out of skilled care in the past. Given her daughters concomitant Covid pneumonia and inability to fully care for her at home she may need reevaluated to go back to skilled care.
[2021-02-04 11:32] LABS: Chloride 114 mmol/L (98-107)
[2021-02-04 11:33] LABS: Potassium 5.1 mmoL/L (3.5-5.1); Sodium 141 mmol/L (136-145)
[2021-02-04 11:35] LABS: Alanine Aminotransferase 13 U/L (12-78); Alkaline Phosphatase 49 U/L (38-126); Aspartate Amino Transferase 34 U/L (14-36); Bilirubin,Total 0.3 mg/dl (0.2-1.3); Blood Urea Nitrogen 18 mg/dl (7-17); Creatinine Clearance Estimated 32 mL/min (50-200); Estimated Glomerular Filt Rate 98 ml/min (>60); GFR (African American) 119 ML/MIN (>60)
[2021-02-04 11:36] LABS: Albumin Level 2.3 g/dl (3.5-5.0); Anion Gap 7.1 mEq/L (5-15); Calcium 7.6 mg/dl (8.4-10.2); Carbon Dioxide 25 mmol/L (22.0-30.0); Globulin 2.2 g/dL (1.3-3.2); Glucose 83 mg/dl (74-100); Total Protein,Serum 4.5 g/dl (6.3-8.2)
[2021-02-05] VITALS (11 sets, daily range): BP systolic 144–169; BP diastolic 64–95; PULSE 69–116; RESP 16–19; TEMP 36.4–37.3; O2SAT 90–99; BMI 19.9
--- NOTE | 2021-02-05 07:27 | PC.NURSE ---
patient rested well during night. VSS on 1-2L per NC. Denies pain. Up with one assist to bathroom, inc of urine also. Requested neb x1 for shortness of breath after activity with improvement noted.
--- NOTE | 2021-02-05 08:48 | HMH.ACPN2 ---
Internal Medicine - PN: Subj *Date: 02/05/21 *Time: 08:48 Interval history: Patient is up on the side of the bed eating breakfast, feels somewhat better. Good p.o. intake. Exam Vital signs and Labs for Last 24 Hours: Temp Pulse Resp BP Pulse Ox 97.8 F 116 H 19 155/90 H 90 L 02/05/21 08:00 02/05/21 08:00 02/05/21 08:00 02/05/21 08:00 02/05/21 08:00 Laboratory Results - last 24 hr 02/04/21 10:53: Sodium 141, Potassium 5.1, Chloride 114 H, Carbon Dioxide 25, Anion Gap 7.1, BUN 18 H D, Creatinine 0.60 D, Estimated Creat Clear 32, Estimated GFR 98, Est GFR ( Amer) 119 D, Glucose 83, Calcium 7.6 L, Total Bilirubin 0.3, AST 34 D, ALT 13 D, Alkaline Phosphatase 49, Total Protein 4.5 L D, Albumin 2.3 L, Globulin 2.2, Albumin/Globulin Ratio 1.0 L I & O for Last 24 hours: Intake & Output 02/02/21 02/03/21 02/04/21 02/05/21 11:59 11:59 11:59 11:59 Intake Total 480 / 480 500 / 500 2039 Balance 480 / 480 500 / 500 2039 Weight 80 lb 8 oz 87 lb 1.321 oz 86 lb Narrative: Overall patient looks better. Lungs have some rhonchi, fairly good air expansion. Heart rate regular. Abdomen is scaphoid soft. No edema or clubbing. Patient is globally weak. Assessment and Plan (1) HAP (hospital-acquired pneumonia) Status: Acute Category: Medical Code(s): J18.9 - Pneumonia, unspecified organism; Y95 - Nosocomial condition (2) Acute exacerbation of chronic obstructive airways disease Status: Acute Category: Medical Code(s): J44.1 - Chronic obstructive pulmonary disease with (acute) exacerbation (3) COVID-19 Status: Acute Category: Medical Code(s): U07.1 - COVID-19 (4) Protein calorie malnutrition Status: Acute Category: Medical Code(s): E46 - Unspecified protein-calorie malnutrition - Assessment and plan all Dx Assessment and Plan for all problems:: Overall improving. No changes in plan. PT/OT evaluation. Discussed with patient possible transfer to skilled care.
--- NOTE | 2021-02-05 08:58 | PC.NURSE ---
All IV tubing changed and dated/initialed
--- NOTE | 2021-02-05 10:22 | HMH.PTEV ---
Physical Therapy Evaluation Rehab PT IP Evaluation Start: 02/04/21 08:10 Freq: ONCE Status: Active Protocol: Document 02/05/21 10:19 JOSUE (Rec: 02/05/21 10:22 JOSUE [id number]) Subjective/History History History 70-year-old white female with oxygen requiring and prednisone requiring emphysema who was diagnosed with COVID- 19 approximately 2 weeks ago. She was admitted to the hospital for 2 or 3 days, did well, and was on her regular oxygen requirement and eating well and discharged back to home to finish convalescing from her COVID-19 pneumonia at her home. copied from H&P Subjective Subjective Pt reprots c/o feeling sick to her stomach when she moves around Rehab PT IP Eval Objective Appearance Patient Behavior Cooperative,Fatigued Patient Orientation Person,Place,Time Difficulty following instructions none Speech Pattern Appropriate,Soft-Spoken Ambulation Patient Able to Ambulate Yes Ambulation Observation IP General Gait Pattern Observation Shuffling Step Ambulation Distance (feet) 10 Ambulation Assistive Device None Ambulation Ability Contact Guard/Hand Hold Balance Ability to Arise Able, uses arms to help Sitting Balance Steady, safe Standing Balance Narrow stance w/o support Dynamic Sitting Balance Ability Good Dynamic Standing Balance Ability Fair Transfers Chair Transfer Ability Supervision/Stand by Sit to Stand Bed Transfer Ability Supervision/Stand by Sit to Stand Chair Transfer Ability Supervision/Stand by Rehab PT IP prob,goals,plan Problems Date of Evaluation: 02/05/21 PT IP Problems Gait,Self care,Safety Rehab Potential Rehab Potential Fair Equipment Needs Assistive Devices Rolling / Wheeled Walker Plan PT Intervention Plan Transfers,Gait,Self care, Safety,Therapeutic Exercise PT Plan Frequency BID Duration LOS Discharge Goals Bed Transfer Ability Supervision/Stand by Sit to Stand Chair Transfer Ability Supervision/Stand by,Contact Guard/Hand Hold Ambulation Assistive Device Rolling Walker Ambulation Distance (feet) 10 Discharge Plan PT Discharge Plan Due to pt's failed recovery at
--- NOTE | 2021-02-05 10:34 | HMH.OTEV ---
OT Inpatient Evaluation Rehab OT IP Evaluation Start: 02/04/21 08:10 Freq: ONCE Status: Complete Protocol: Document 02/05/21 10:30 EFRAIN (Rec: 02/05/21 10:34 EFRAIN [id number]) Rehab OT IP Assessment Subjective History *Admission Date: 02/02/21 *Chief complaint: Cough/ congestion/shortness of air *History of present illness: 70-year-old white female with oxygen requiring and prednisone requiring emphysema who was diagnosed with COVID- 19 approximately 2 weeks ago. She was admitted to the hospital for 2 or 3 days, did well, and was on her regular oxygen requirement and eating well and discharged back to home to finish convalescing from her COVID-19 pneumonia at her home. She was doing well, had home health services who checked on her yesterday and thought that she looked bad and noted that her heart rate was elevated and that she had slightly more oxygen requirement. Brought to the emergency department here where she was found to have a new infiltrate , slightly increased oxygen requirement and she was admitted to hospital for post viral bacterial pneumonia. [facility] History I have reviewed the patient's past medical history: Yes Medical History: Reports:: Chronic Obstructive Pulmonary Disease (COPD), Hyperlipidemia , Hypertension, Peripheral Vascular Disease Subjective I can get up. Instructed Patient on proper hand and foot placement to complete supine->sit @ EOB requiring min A. No LOB noted. Instructed Patient on completing ambulation task to
--- NOTE | 2021-02-05 18:49 | PC.NURSE ---
Patient had no acute events throughout shift. Patient ambulated as tolerated.
--- NOTE | 2021-02-05 18:56 | PC.NURSE ---
Patient provided education/demonstration of i/s
[2021-02-06] VITALS (14 sets, daily range): BP systolic 147–190; BP diastolic 72–110; PULSE 67–107; RESP 16–18; TEMP 36.4–37.2; O2SAT 94–100; BMI 21.6
--- NOTE | 2021-02-06 07:27 | PC.NURSE ---
Patient rested through night without complaints. VSS on 2l. NSR on monitor. Denies pain. Using purewick for incontinent episodes. Repositions self in bed. Able to make needs known. Covid Isolation.
--- NOTE | 2021-02-06 08:37 | XR_ITS ---
PROCEDURE INFORMATION: Exam: XR Abdomen Exam date and time: 02/06/2021 8:37 AM Age: 70 years old Clinical indication: Abdominal pain; Additional info: Lower abd pain, ? constipation TECHNIQUE: Imaging protocol: XR of the abdomen. Views: 2 Views. Upright and supine views. COMPARISON: CR XR CHEST PORTABLE 02/02/2021 5:22 PM FINDINGS: Tubes, catheters and devices: Tubal ligation clips in the pelvis. Surgical clips project over the bilateral inguinal regions. Pleural space: Slightly worsened left basilar airspace opacities with mildly increased size of a left pleural effusion. Gastrointestinal tract: Nonobstructive bowel gas pattern. Moderate formed stool burden in the colon. Intraperitoneal space: No pneumoperitoneum. Vasculature: Vascular calcifications. Stent projects over the region of the right femoral vasculature. Bones/joints: Unremarkable for age. IMPRESSION: 1. Nonobstructive bowel gas pattern with moderate formed colonic stool burden. 2. No pneumoperitoneum. 3. Slightly worsened left basilar airspace opacities with mildly increased size of a left pleural effusion.
--- NOTE | 2021-02-06 08:38 | P.PN_ITS ---
Internal Medicine - PN: Subj *Date: 02/06/21 *Time: 08:38 Interval history: Overall patient feels pretty good from a breathing perspective. Has been eating well. Does complain of some bilateral lower quadrant abdominal pain and notes she is not had a bowel movement in a couple of days. Exam Vital signs and Labs for Last 24 Hours: Temp Pulse Resp BP Pulse Ox 98.8 F 85 18 155/80 H 100 02/06/21 04:00 02/06/21 04:00 02/06/21 04:00 02/06/21 04:00 02/06/21 04:00 I & O for Last 24 hours: Intake & Output 02/03/21 02/04/21 02/05/21 02/06/21 11:59 11:59 11:59 11:59 Intake Total 480 / 480 500 / 500 2280 / 2280 3087 / 3087 Balance 480 / 480 500 / 500 2280 / 2280 3087 / 3087 Weight 80 lb 8 oz 87 lb 1.321 oz 86 lb 93 lb 6 oz Narrative: Patient has fairly good air movement compared to baseline. Comfortable on 2 L nasal cannula. Heart rate regular. Abdomen is soft but some very vague diffuse tenderness in both lower quadrants. No peripheral edema or clubbing. No rash. Oropharynx clear, neurologically weak but intact Assessment and Plan (1) HAP (hospital-acquired pneumonia) Status: Acute Category: Medical Code(s): J18.9 - Pneumonia, unspecified organism; Y95 - Nosocomial condition (2) Acute exacerbation of chronic obstructive airways disease Status: Acute Category: Medical Code(s): J44.1 - Chronic obstructive pulmona ry disease with (acute) exacerbation (3) COVID-19 Status: Acute Category: Medical Code(s): U07.1 - COVID-19 (4) Protein calorie malnutrition Status: Acute Category: Medical Code(s): E46 - Unspecified protein-calorie malnutrition - Assessment and plan all Dx Assessment and Plan for all problems:: Care management is trying to find a place that accepts patient's insurance for transfer for long-term care. Patient has been over 2 weeks since the onset of her Covid symptoms and is therefore not required to be in isolation. Continue current antibiotics. Transition to oral for transfer. Check x-ray to look at bowel gas pattern this morning.
[2021-02-06 09:28] LABS: Anion Gap 9.2 mEq/L (5-15); Blood Urea Nitrogen 8 mg/dl (7-17); Calcium 8.3 mg/dl (8.4-10.2); Carbon Dioxide 26 mmol/L (22.0-30.0); Chloride 106 mmol/L (98-107); Creatinine Clearance Estimated 34 mL/min (50-200); Estimated Glomerular Filt Rate 98 ml/min (>60); GFR (African American) 119 ML/MIN (>60); Glucose 85 mg/dl (74-100); Potassium 3.2 mmoL/L (3.5-5.1); Sodium 138 mmol/L (136-145)
--- NOTE | 2021-02-06 10:15 | SW/DCPLANNER ---
Addendum entered by Mirta Contreras 02/07/21 12:18: PATIENT HAS BEEN ACCEPTED TO [facility] IN [place] ([facility].... WILL DISCHARGE THERE TODAY SKILLED UNDER HER [facility] BENEFIT.. I HAVE NOTIFIED HER DAUGHTER AND SHE IS IN AGREEMENT OF THE PLAN.. Addendum entered by Mirta Contreras 02/07/21 07:59: WILL FOLLOW UP THIS MORNING TO SEE IF PATIENT HAS BEEN ACCEPTED AND IF SO SHE CAN DISCHARGE THERE TODAY.. IF NOT I WILL CONTINUE TO LOOK FOR A PATIENT THAT HAS A CONTRACT WITH [facility]... Addendum entered by Mirta Contreras 02/06/21 13:49: I SENT REFERRAL TO [facility] AND WAITING TO SEE IF THEY CAN TAKE HER.. SHE WAS DENIED AT [facility] R/T NO BEDS...IF [facility] CAN TAKE HER SHE WILL DISCHARGE THERE... Original Note: PER DR WINN REQUEST HE ASKED IF I WOULD SEND A REFERRAL TO [facility] TO SEE IF THEY CAN ACCEPT THIS PATIENT.. I DID CALL AND SPOKE WITH [employer] SABIHA AND SHE SAID THEY WILL REVIEW THE REFERRAL BUT SHE DOESN'T KNOW IF SHE IS GOING TO HAVE A BED OR NOT... I WILL ALSO SEND IT TO [facility] TO SEE IF [facility] CAN'T TAKE HER THEY CAN... PATIENT IS MEDICALLY READY FOR DISPOSITION....
[2021-02-06 11:41] LABS: Vancomycin,Trough < 5.0 ug/mL (5.0-10.0)
--- NOTE | 2021-02-06 14:48 | HMH.ACPN ---
Internal Medicine - PN: Subj *Date: 02/06/21 *Time: 14:48 Exam Vital signs and Labs for Last 24 Hours: Temp Pulse Resp BP Pulse Ox 97.6 F 78 16 147/76 H 94 L 02/06/21 11:46 02/06/21 13:41 02/06/21 13:00 02/06/21 11:46 02/06/21 11:46 Laboratory Results - last 24 hr 02/06/21 08:55: Vancomycin Trough < 5.0 L 02/06/21 08:55: Sodium 138, Potassium 3.2 L D, Chloride 106, Carbon Dioxide 26, Anion Gap 9.2, BUN 8 D, Creatinine 0.60, Estimated Creat Clear 34, Estimated GFR 98, Est GFR ( Amer) 119, Glucose 85, Calcium 8.3 L I & O for Last 24 hours: Intake & Output 02/03/21 02/04/21 02/05/21 02/06/21 23:59 23:59 23:59 23:59 Intake Total 960 / 960 140 / 140 4085 / 4085 1162 / 1162 Output Total 650 / 650 Balance 960 / 960 140 / 140 4085 / 4085 512 / 512 Weight 36.514 kg 39.5 kg 39.009 kg 42.354 kg Assessment and Plan (1) HAP (hospital-acquired pneumonia) Status: Acute Category: Medical Code(s): J18.9 - Pneumonia, unspecified organism; Y95 - Nosocomial condition (2) Acute exacerbation of chronic obstructive airways disease Status: Acute Category: Medical Code(s): J44.1 - Chronic obstructive pulmonary disease with (acute) exacerbation (3) COVID-19 Status: Acute Category: Medical Code(s): U07.1 - COVID-19 (4) Protein calorie malnutrition Status: Acute Category: Medical Code(s): E46 - Unspecified protein-calorie malnutrition The patient's infection will respond to the chosen ABx?: Yes Is the patient receiving the right drug, dose, and route?: Yes Could a more targeted ABx be ordered?: No (PATIENT CURRENTLY AFEBRILE.)
[2021-02-06 16:40] LABS: Vancomycin,Peak < 5.0 ug/ml (11-39)
--- NOTE | 2021-02-06 23:57 | PC.NURSE ---
Patient still refusing enema at this time. This nurse has offered enema twice to patient since 1929.
[2021-02-07] VITALS: BP 160/72; PULSE 88; RESP 19; TEMP 36.4; O2SAT 99
--- NOTE | 2021-02-07 03:08 | PC.NURSE ---
Patient has been anxious for a majority of this RN's shift, thus far. Patient is currently resting in bed at this time. Will continue to monitor.
[2021-02-07 04:00] VITALS: BP 159/72; PULSE 81; RESP 18; TEMP 36.6; O2SAT 97
[2021-02-07 04:24] VITALS: BMI 20.6
[2021-02-07 08:00] VITALS: BP 148/86; PULSE 109; RESP 22; TEMP 36.7; O2SAT 98
--- NOTE | 2021-02-07 08:49 | HMH.ACPN2 ---
Internal Medicine - PN: Subj *Date: 02/07/21 *Time: 08:49 Interval history: Patient is about the same, continues to have some lower abdominal pain but declined a fleets enema yesterday because of her mild constipation. Otherwise breathing is the same, she continues to be very weak. Exam Vital signs and Labs for Last 24 Hours: Temp Pulse Resp BP Pulse Ox 98.0 F 109 H 22 148/86 H 98 02/07/21 08:00 02/07/21 08:00 02/07/21 08:00 02/07/21 08:00 02/07/21 08:00 Laboratory Results - last 24 hr 02/06/21 08:55: Vancomycin Trough < 5.0 L 02/06/21 08:55: Sodium 138, Potassium 3.2 L D, Chloride 106, Carbon Dioxide 26, Anion Gap 9.2, BUN 8 D, Creatinine 0.60, Estimated Creat Clear 34, Estimated GFR 98, Est GFR ( Amer) 119, Glucose 85, Calcium 8.3 L 02/06/21 13:15: Vancomycin Peak < 5.0 L I & O for Last 24 hours: Intake & Output 02/04/21 02/05/21 02/06/21 02/07/21 11:59 11:59 11:59 11:59 Intake Total 500 / 500 2280 / 2280 3147 / 3147 240 / 240 Output Total 650 / 650 450 / 450 Balance 500 / 500 2280 / 2280 2497 / 2497 -210 / -210 Weight 87 lb 1.321 oz 86 lb 93 lb 6 oz 89 lb 4 oz Narrative: Alert, pleasant. Very weak. Lungs with some rhonchi. Heart rate regular. Abdomen is soft. No edema or clubbing. Assessment and Plan (1) HAP (hospital-acquired pneumonia) Status: Acute Category: Medical Code(s): J18.9 - Pneumonia, unspecified organism; Y95 - Nosocomial condition (2) Acute exacerbation of chronic obstructive airways disease Status: Acute Category: Medical Code(s): J44.1 - Chronic obstructive pulmonary disease with (acute) exacerbation (3) COVID-19 Status: Acute Category: Medical Code(s): U07.1 - COVID-19 (4) Protein calorie malnutrition Status: Acute Category: Medical Code(s): E46 - Unspecified protein-calorie malnutrition - Assessment and plan all Dx Assessment and Plan for all problems:: Remains on antibiotics, can be switched to p.o. when able to be discharged to long-term care. Care management currently searching for a bed that will accept her insurance. Trial of MiraLAX for constipation since her refusal of the fleets enema.
[2021-02-07 10:28] VITALS: PULSE 74; PULSE 78; O2SAT 100
[2021-02-07 11:43] LABS: Anion Gap 4.5 mEq/L (5-15); Blood Urea Nitrogen 11 mg/dl (7-17); Calcium 8.1 mg/dl (8.4-10.2); Carbon Dioxide 28 mmol/L (22.0-30.0); Chloride 106 mmol/L (98-107); Creatinine Clearance Estimated 32 mL/min (50-200); Estimated Glomerular Filt Rate 98 ml/min (>60); GFR (African American) 119 ML/MIN (>60); Glucose 96 mg/dl (74-100); Potassium 3.5 mmoL/L (3.5-5.1); Sodium 135 mmol/L (136-145)
[2021-02-07 12:00] VITALS: BP 133/66; PULSE 69; RESP 18; TEMP 36.4; O2SAT 97
--- NOTE | 2021-02-07 12:16 | HMH.DCSUM ---
General - General Admission date:: 02/02/21 Discharge date: 02/07/21 HPI HPI: 70-year-old white female with oxygen requiring and prednisone requiring emphysema who was diagnosed with COVID-19 approximately 2 weeks ago. She was admitted to the hospital for 2 or 3 days, did well, and was on her regular oxygen requirement and eating well and discharged back to home to finish convalescing from her COVID-19 pneumonia at her home. She was doing well, had home health services who checked on her yesterday and thought that she looked bad and noted that her heart rate was elevated and that she had slightly more oxygen requirement. Brought to the emergency department here where she was found to have a new infiltrate, slightly increased oxygen requirement and she was admitted to hospital for post viral bacterial pneumonia. Hospital Course Hospital Course: Patient was admitted, placed on cefepime for coverage of hospital-acquired pneumonia/post viral pneumonia. Regular breathing treatments were continued. Patient was unable to cough up a good sputum specimen so sputum culture not obtained, blood cultures were negative throughout her time of hospitalization. Patient improved/stabilized from a pulmonary component, and maintained on 2 to 3 L nasal cannula which is her home baseline. She did have a little trouble with constipation, declined a fleets enema yesterday, so we placed her on MiraLAX after abdominal x-ray showed increased stool pattern in the lower abdomen. Her main issue throughout her hospital stay was extensive weakness and fatigue along with her protein calorie malnutrition with BMI less than 20. Physical therapy evaluated her and felt that she would do well with a skilled care stay for several weeks before attempting to return home. Of note, her daughter with whom she lives also has had Covid and has been very weak and has been able to care for her in the manner to which she had been used to before. Patient and family agreed to find a skilled care and a bed was available at the [facility] in [place] and she will be transferred there today. Please note that she will finish up antibiotics with cefdinir 300 mg twice daily for 5 days. I will do 3 more doses of dexamethasone steroid, otherwise her medicines will be as noted on the dictation summary. Please note she will need PT/OT/dietary/speech evaluation. Objective Vital signs: Temp Pulse Resp BP Pulse Ox 98.0 F 78 22 148/86 H 100 02/07/21 08:00 02/07/21 10:28 02/07/21 08:00 02/07/21 08:00 02/07/21 10:28 no acute distress, thin, cachectic, chronically ill appearing - *Routine HEENT Exam Head: Present: normocephalic Eye: Present: EOMI, PERRL ENT: Present: mucous membranes moist - *Routine Neck Exam Present: supple - *Routine Respiratory Exam Present: rhonchi Comments: Fairly good air entry, kyphosis and COPD limit her air excursion - *Routine Cardiovascular Exam Present: RRR - *Routine Abdominal Exam Present: soft, normoactive bowel sounds. Absent: tenderness Comments: Very minimal distention of the lower quadrants but no rebound or guarding - *Routine Extremities Exam Absent: cyanosis, clubbing, edema - *Routine Skin Exam Present: dry, warm. Absent: rash - *Routine Neurological Exam Present: alert, oriented X3 Globally weak, very frail. No focal deficits - Detailed Eye Exam Eyelids: Bilateral normal inspection Results Labs on day of discharge: Labs from last 24 hours 02/07/21 02/06/21 09:25 13:15 Sodium 135 L Potassium 3.5 Chloride 106 Carbon Dioxide 28 Anion Gap 4.5 L BUN 11 D Creatinine 0.60 Estimated Creat Clear 32 Estimated GFR 98 Est GFR ( Amer) 119 Glucose 96 Calcium 8.1 L Vancomycin Peak < 5.0 L DS: Diagnosis - Discharge Diagnosis (1) HAP (hospital-acquired pneumonia) Status: Acute (2) Acute exacerbation of chronic obstructi
== END 2021-02-07 15:00 | DRG 193 ==
LOC: ER 18:29 → 2ND 19:13
PROVIDERS: Admitting Provider Internal Medicine Adolescent Medicine; Emergency Provider Emergency Medicine; PCP Nurse Practitioner Family; Visit Provider Internal Medicine Adolescent Medicine
DX: J15.9 Unspecified bacterial pneumonia (principal); U07.1 COVID-19; J96.90 Respiratory failure, unspecified, unspecified whether with hypoxia or hypercapnia; E46 Unspecified protein-calorie malnutrition; Z68.1 Body mass index [BMI] 19.9 or less, adult; N17.9 Acute kidney failure, unspecified; Z79.01 Long term (current) use of anticoagulants; E03.9 Hypothyroidism, unspecified; K59.00 Constipation, unspecified; Z68.20 Body mass index [BMI] 20.0-20.9, adult; J43.9 Emphysema, unspecified; Y95 Nosocomial condition; F17.210 Nicotine dependence, cigarettes, uncomplicated; Z99.81 Dependence on supplemental oxygen; I73.9 Peripheral vascular disease, unspecified; E78.5 Hyperlipidemia, unspecified; F41.9 Anxiety disorder, unspecified
CPT/HCPCS: 36415; 71045; 74019; 80048; 80053; 80202; 82803; 83605; 84484; 85007; 85025; 85610; 85730; 94640; 94761; 96365; 96375; 97110; 97162; 97165; 97530; 99284; C9803; J0692; J2405; J3370; U0003; U0005